=== PATIENT | female | born 1970 | race Two or more races ===

== ENCOUNTER → 2016-07-18 | Outpatient (CLI) | payer OTHER ==
[2015-12-03 16:46] VITALS: BP 142/71
[~2016-07-18] MED LIST: ALPR0.5T PO; AMIT25TA PO; CHOL100013 PO; ESOM40CA25 PO; ESTR26GE TD; LOSA50TA6 PO; VENL37.56 PO; ZOLP10TA PO
--- NOTE | 2016-07-19 08:45 | RAD ---
Left little finger, 3 views, 07/18/2016: History: Finger injury No fracture or dislocation is identified. There is minimal narrowing of the interphalangeal joints. IMPRESSION: No acute bony abnormality is detected.
== END | disposition home or self-care (01) ==
LOC: RAD 16:45
PROVIDERS: ATTEND Internal Medicine
DX: M79.645 Pain in left finger(s) (principal)
CPT/HCPCS: 73140

== ENCOUNTER 2016-08-01 22:28 | Emergency (ER) | payer OTHER ==
[~2016-08-01 22:28] MED LIST changes: -GADOBUTROL 7.5 MMOL/7.5 ML VIAL IV ONE; -HYDR-2666 PO; -SUCR1TAB29 PO
[2016-08-01 22:42] VITALS: BP 141/81
[2016-08-01] MEDS ORDERED: LIDO:MAALOX:DONNATAL 1:1:1 15 ML SINGLE DOSE SWSW ONE (23:00)
--- NOTE | 2016-08-01 23:13 | PHYS DOC ---
Past Medical History Past Medical History: Other Additional Past Medical Histor: hx of a blood clot Past Surgical History: Hysterectomy Alcohol Use: None Drug Use: None Adult General Chief Complaint Chief Complaint: HEARTBURN/GI DISTRESS HPI HPI Patient is a 45 year old female with history of GERD presents complaining of heartburn and chest pain has been present constantly all day today. She simply describes it as a "pain" radiating from her epigastrium up to her throat. She has had this before, but not as intense. The pain is worse whenever she swallows something. She denies bloody stools, dark stools, cough, shortness of breath, fever, palpitations, or dizziness. No leg swelling or calf tenderness. Nothing makes the pain better. She has no other acute complaints. No history of heart disease or diabetes. She is not a smoker. Review of Systems Review of Systems Constitutional: Denies fever or chills Eyes: Denies change in visual acuity, redness, or eye pain HENT: Denies nasal congestion or sore throat Respiratory: Denies cough or shortness of breath Cardiovascular: Reports chest pain. GI: Reports heartburn. Denies nausea, vomiting, bloody stools, or diarrhea. : Denies dysuria or hematuria Musculoskeletal: Denies back pain or joint pain Integument: Denies rash or skin lesions Neurologic: Denies headache, focal weakness or sensory changes Current Medications Current Medications Current Medications Medications (Trade) Dose Ordered Sig/David Start Time Stop Time Status Last Admin Dose Admin Multi-Ingredient Mouthwash/Gargle (Gi Cocktail Single Dose) 15 ml 1X ONCE 08/01/16 23:00 08/01/16 23:01 DC 08/01/16 23:05 15 ML Allergies Allergies Allergies Coded Allergies Type Severity Reaction Last Updated Verified codeine Allergy Unknown 08/07/14 Yes Physical Exam Physical Exam Constitutional: Well developed, well nourished, no acute distress, non-toxic appearance. HENT: Normocephalic, atraumatic, bilateral external ears normal, oropharynx moist, no oral exudates, nose normal. Eyes: PERRLA, EOMI, conjunctiva normal, no discharge. Neck: Normal range of motion, no tenderness, supple, no stridor. Cardiovascular:Heart rate regular rhythm, no murmur Lungs & Thorax: Bilateral breath sounds clear to auscultation Abdomen: Bowel sounds normal, soft, no tenderness, no masses, no pulsatile masses. Skin: Warm, dry, no erythema, no rash. Back: No tenderness, no CVA tenderness. Extremities: No tenderness, no cyanosis, ROM intact, no edema. Neurologic: Alert and oriented X 3, normal motor function, normal sensory function, no focal deficits noted. Psychologic: Affect normal, judgement normal, mood normal. Current Patient Data Vital Signs Vital Signs Date Time Temp Pulse Resp B/P Pulse Ox O2 Delivery O2 Flow Rate FiO2 08/01/16 22:42 98.0 86 18 141/81 99 Room Air 98.0 EKG EKG EKG: Sinus rhythm. Rate 79 bpm. Normal axis and intervals. No ST segment abnormalities. Normal EKG. Interpreted by me. Radiology/Procedures Radiology/Procedures [] Course & Med Decision Making Course & Med Decision Making Pertinent Labs and Imaging studies reviewed. (See chart for details) Patient has very atypical chest pain associated with GI reflux. She is low risk for ACS. EKG is nonischemic, exam is unremarkable, vitals are stable. She reports some improvement after GI cocktail. I wonder write her for Carafate and hydrocodone/APAP. I recommended against spicy, greasy, fatty foods and advised against ibuprofen and NSAIDs. I recommended primary care follow-up. Return precautions were discussed and all questions were answered prior to discharge. Rose Disclaimer Rose Disclaimer This electronic medical record was generated, in whole or in part, using a voice recognition dictation system. Departure Departure Impression: Primary Impression: Atypical chest pain Additional Impression: GERD (gastroesophageal reflux disease) Disposition: 01 HOME, SELF-CARE Condition: STABLE Referrals: MICHELINE TRIMBLE MD (PCP) Patient Instructions: Chest Pain (Nonspecific), [id number], Diet for Gastroesophageal Reflux Disease, Adult, [id number], Gastroesophageal Reflux Disease, Adult, [id number] Additional Instructions: Continue taking the Dexilant as prescribed. Take Carafate 4 times a day with meals as needed for chest pain/heartburn. Take the prescribed pain medication as directed, as needed. Avoid greasy, spicy, and fatty foods. Avoid alcohol and tobacco. You should also avoid NSAID medications such as ibuprofen and naproxen. If your pain becomes worse or you develop shortness of breath or lightheadedness return to the emergency department. Call your primary doctor tomorrow for follow-up. Scripts Sucralfate (Carafate)1 Gm Tablet1 Tab PO QID PRN INDIGESTION #120 TAB Ref 0 Prov:SHASHI WELLS MD 08/01/16 Hydrocodone Bit/Acetaminophen (Hydrocodone-Apap 5-325 )1 Each Tablet1-2 Tab PO Q4-6HRS PRN PAIN #20 TAB Ref 0 Prov:SHASHI WELLS MD 08/01/16 Problem Qualifiers Additional Impression: GERD (gastroesophageal reflux disease) Esophagitis presence: esophagitis presence not specified Qualified Code: K21.9 - Gastro-esophageal reflux disease without esophagitis SHASHI WELLS MD Aug 01, 2016 22:47
[2016-08-01] MEDS ORDERED: SUCR1TAB29 PO (23:24)
[2016-08-01] MEDS ORDERED: HYDR-2666 PO (23:24)
--- NOTE | 2016-08-02 07:11 | EKG ---
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
== END 2016-08-01 23:35 | disposition home or self-care (01) ==
LOC: ER 22:28
DX: K21.9 Gastro-esophageal reflux disease without esophagitis (principal); R07.89 Other chest pain; Z90.710 Acquired absence of both cervix and uterus; Z88.5 Allergy status to narcotic agent
CPT/HCPCS: 93005; 99283-25

== ENCOUNTER → 2016-08-01 | Outpatient (CLI) | payer OTHER ==
[2015-12-03 16:46] VITALS: BP 142/71
[~2016-08-01] MED LIST changes: +GADOBUTROL 7.5 MMOL/7.5 ML VIAL IV ONE; +HYDR-2666 PO; +SUCR1TAB29 PO
--- NOTE | 2016-08-01 16:20 | KCIC ---
PROCEDURE MRI brain without and with contrast. HISTORY Intractable migraine headache with aura, chronic daily headaches, left eye twitching TECHNIQUE Sagittal and axial T1, axial T2, axial FLAIR, axial diffusion, axial gradient echo T2, and post-contrast axial and coronal T1 weighted images were acquired of the brain. Contrast: 6 cc Gadavist COMPARISON None available at this time FINDINGS Ventricles, sulci, and cisterns are within normal limits in size and configuration. There is no intra-axial mass effect, midline shift, extra-axial fluid collection, or nodular parenchymal or leptomeningeal enhancement. There is no significant focal signal abnormality including hemosiderin deposition of the brain parenchyma. There is mild nonspecific increased CSF signal of the optic nerve sheaths. There is preservation of the major arterial intracranial flow voids at the skull base. Mastoid air cells are aerated. Paranasal sinuses are overall aerated. There is non pneumatization of the frontal sinus, also limited pneumatization of the sphenoid sinus. Cerebellar tonsils are normal in location. There is no abnormality of the pineal gland or pituitary gland. IMPRESSION 1. There is no significant intracranial abnormality. Electronically signed by: Sheng Goodrich MD (Aug 01, 2016 16:19:12)
== END | disposition home or self-care (01) ==
LOC: KCIC MRI 15:15
PROVIDERS: ATTEND Psychiatry & Neurology Neurology with Special Qualifications in Child Neurology
DX: G43.119 Migraine with aura, intractable, without status migrainosus (principal)
CPT/HCPCS: 70553; A9585

== ENCOUNTER → 2016-09-11 | Outpatient (CLI) | payer OTHER ==
[~2016-09-11] MED LIST changes: +DEXL60CA PO; +FLUT9.9S NS; +HYDR-2666 PO; +METO25TA2 PO; +NAPR220T70 PO; +OXYC1TAB7 PO; +SUCR1TAB29 PO; +VORT20TA PO
[2016-09-11 08:01] LABS: ALBUMIN 3.6 g/dL (3.4-5.0); ALK PHOS 95 U/L (46-116); ALT (SGPT) 32 U/L (14-59); AST (SGOT) 21 U/L (15-37); CHOLESTEROL 355 mg/dL (0-200); DIRECT BILIRUBIN 0.1 mg/dL (0.0-0.2); HDLC 36 mg/dL (40-60); TOTAL BILIRUBIN 0.4 mg/dL (0.2-1.0); TOTAL PROTEIN 7.8 g/dL (6.4-8.2); TRIGLYCERIDES 553 mg/dL (0-150)
[2016-09-11 08:02] LABS: CHOLESTEROL/HDL RATIO 9.9
== END | disposition home or self-care (01) ==
LOC: LAB 07:10
PROVIDERS: ATTEND Internal Medicine Cardiovascular Disease
DX: E78.1 Pure hyperglyceridemia (principal); R73.03 Prediabetes
CPT/HCPCS: 36415; 80061; 80076; 83036

== ENCOUNTER → 2016-09-11 | Outpatient (CLI) | payer OTHER ==
[~2016-09-11] VITALS: Ht 152.4 cm; Wt 62.6 kg
[~2016-09-11] MED LIST changes: +SINCALIDE 1.25 MCG in IV NORMAL SALINE 50ML 30 ML IV ONE
--- NOTE | 2016-09-11 08:47 | RAD ---
Exam performed: Complete abdominal ultrasound. History: Epigastric pain. Date of service: 09/11/16. Comparison: None available Technique: Real-time grayscale imaging of the complete abdomen is performed and images are obtained. Findings: The liver demonstrates diffuse steatosis and measures 16.1 cm in length. There is a somewhat lobulated, septated 7.9 x 6.5 cm cyst in the right hepatic lobe. Cholelithiasis. No evidence of gallbladder wall thickening or pericholecystic fluid seen. Bilateral kidneys are normal. Right kidney measures 10.2 x 4.4 x 4.5 cm and the left kidney measures 11.5 x 4.3 x 5.6 cm. No hydronephrosis or nephrolithiasis. Pancreas, spleen and visualized IVC and aorta appear grossly normal. Impression: Large lobulated somewhat septated cyst right hepatic lobe. Diffuse hepatic steatosis. Cholelithiasis without sonographic evidence of acute cholecystitis
--- NOTE | 2016-09-11 10:16 | RAD ---
Radionuclide hepatobiliary scan with gallbladder ejection fraction, 09/11/2016: History: Abdominal pain Following IV injection of 5.5 mCi of technetium 99m Choletec there was prompt uptake of the radionuclide from the blood stream by the liver. Activity is present in the bile ducts and gallbladder at 10 minutes. Imaging obtained out to one hour showed increasing gallbladder activity without extension into the small bowel. Following IV injection of 1.2 mcg of cholecystokinin there was extension of activity into the small bowel. The gallbladder ejection fraction was calculated at 89%. IMPRESSION: 1. No evidence of cystic duct or common bile duct obstruction. 2. The gallbladder ejection fraction is 89%.
== END | disposition home or self-care (01) ==
LOC: US 06:48
PROVIDERS: ATTEND Internal Medicine Gastroenterology
DX: R10.13 Epigastric pain (principal); K85.90 Acute pancreatitis without necrosis or infection, unspecified
CPT/HCPCS: 76700; 78226; 96374; 96375; A9537; J2805

== ENCOUNTER 2016-09-28 07:50 | Observation (INO) | payer OTHER ==
[2016-09-28] VITALS (9 sets, daily range): BP systolic 114–142; BP diastolic 62–88
[~2016-09-28] VITALS: Ht 152.4 cm; Wt 64.4 kg
[~2016-09-28 07:50] MED LIST changes: +CEFAZOLIN 2GM PREMIX 50 ML IV PRN; +INDOCYANINE GREEN 2.5 MG in TOTAL VOLUME SYRINGE 1 ML IVP ONE; +IV RINGERS,LACTATED 1000ML 1,000 ML IV SCH; +LIDOCAINE 1% 1 ML SYRINGE. ID PRN; +ONDANSETRON PF 4 MG/2 ML VIAL. IV PRN; -OXYC1TAB7 PO; +PROCHLORPERAZINE 10 MG/2 ML VIAL. IV PRN; -SINCALIDE 1.25 MCG in IV NORMAL SALINE 50ML 30 ML IV ONE
[2016-09-28] MEDS ORDERED: SURGICEL HEMOSTAT 4X8 EACH. ONE (08:16)
[2016-09-28] MEDS ORDERED: BUPIVACAINE-EPI 0.25%-1:200000 MPF 30 ML VIAL. ONE (08:16)
[2016-09-28] MEDS ORDERED: DEXAMETHASONE SOD PHOS 20 MG/5 ML VIAL. IV ONE (08:45)
[2016-09-28] MEDS ORDERED: DEXAMETHASONE SOD PHOS 4 MG/ML VIAL IV ONE (08:46)
[2016-09-28] MEDS: ACETAMINOPHEN INTRAVENOUS 100 ML IV PRN ×2 (08:49→15:23)
[2016-09-28] MEDS ORDERED: ROCURONIUM 50 MG/5 ML VIAL. ONE (08:55)
[2016-09-28] MEDS ORDERED: LIDOCAINE 2% 100 MG/5 ML DISP.SYRIN. ONE (08:55)
[2016-09-28] MEDS ORDERED: ONDANSETRON PF 4 MG/2 ML VIAL. ONE (08:55)
[2016-09-28] MEDS ORDERED: GLYCOPYRROLATE 1 MG/5 ML VIAL. ONE (08:55)
[2016-09-28] MEDS ORDERED: SEVOFLURANE 31 TO 60 MINUTES. IH ONE (08:55)
[2016-09-28] MEDS ORDERED: PROPOFOL 20 ML IV ONE ×2 (08:55→10:03)
[2016-09-28] MEDS ORDERED: NEOSTIGMINE METHYLSULFATE 5 MG/5 ML SYRINGE. ONE (08:56)
[2016-09-28] MEDS ORDERED: KETOROLAC 30 MG/ML SYRINGE FOR OR. INJ ONE (08:56)
[2016-09-28] MEDS ORDERED: SCOPOLAMINE 1.5MG PATCH. TD ONE (09:00)
[2016-09-28] MEDS ORDERED: PHENYLEPHRINE in 0.9% NACL PF 1 MG/10 ML DISP.SYRIN. IV ONE (09:35)
[2016-09-28] MEDS ORDERED: SEVOFLURANE 61 TO 120 MINUTES. IH ONE (10:00)
[2016-09-28] MEDS ORDERED: FENTANYL PF 100 MCG/2 ML VIAL. ONE (10:11)
--- NOTE | 2016-09-28 10:12 | PDOC ---
BRIEF OPERATIVE NOTE Date: Sep 28, 2016 Pre-Op Diagnosis Cholecystitis Post-Op Diagnosis Same Procedure Performed Robotic assisted single site L/S cholecystectomy Surgeon Randy Anesthesia Type: General Blood Loss 10ml Specimens Obtained Gallbladder Findings as above Complications None TAYA STAUFFER MD Sep 28, 2016 10:12
[2016-09-28] MEDS ORDERED: 0.9 % SODIUM CHLORIDE 10 ML DISP.SYRIN. IV PRN (10:15)
[2016-09-28] MEDS ORDERED: OXYCODONE/APAP 5/325 TABLET. PO PRN (10:15)
[2016-09-28] MEDS ORDERED: ONDANSETRON PF 4 MG/2 ML VIAL. IV PRN (10:15)
--- NOTE | 2016-09-28 10:40 | OP ---
DATE OF SURGERY: 09/28/2016 PREOPERATIVE DIAGNOSES: Cholecystitis, cholelithiasis. POSTOPERATIVE DIAGNOSES: Cholecystitis, cholelithiasis. PROCEDURE: Robotic-assisted laparoscopic single-site cholecystectomy. SURGEON: Rhett Stauffer MD. INDICATIONS: The patient is a 45-year-old female, who has had right upper quadrant abdominal pain. Ultrasound showing gallstones. Procedure of robotic-assisted laparoscopic single-site cholecystectomy was explained to the patient in detail. Risks and benefits were also discussed including bleeding, infection, injury to intra-abdominal contents, possibly sustaining further open operations. Alternatives of this procedure were also discussed with the patient who seemed to understand and gave verbal and written consent to have the procedure performed. DESCRIPTION OF PROCEDURE: The patient was taken to the operating room and placed in a supine position. General anesthesia was initiated. Once the patient was asleep and intubated, her abdomen was prepped and draped in the usual sterile fashion using ChloraPrep. An area around her umbilicus was injected with 0.25% Marcaine with epinephrine. Incision was made with an 11 blade scalpel to the umbilicus, was carried down through subcutaneous tissues down to the fascia. Fascia was opened with Metzenbaum scissors as well as the peritoneum. Two ____ were placed within the abdomen and the fascia was further opened with electrocautery. This allowed for placement of the silicone single port. Thus a pneumoperitoneum was achieved. Camera port was placed and the camera was placed within the abdomen. Abdomen was inspected. No other abnormalities were noted. At this point, the da Domenica robot was brought in and docked over the right shoulder to the camera port. At this point, two curved ports were then placed under direct visualization as well as an accessory port. The dome of the gallbladder was grasped through the accessory port and retracted cephalad. At this point, the surgeon went to the surgical console and using a [place] grasper and a hook cautery, the triangle of Calot was taken down off its adherent tissues exposing the cystic duct and cystic artery. Both were clipped with Hem-o-noemy clips and transected. The gallbladder was taken off the liver with hook electrocautery. Once it was completely detached, surgeon returned to the operative field. The da Domenica robot was undocked and removed from the patient. The GelPort was then removed with the gallbladder and all other ports. The fascial defect was then closed with a running 0 looped PDS and the skin was reapproximated with 4-0 subcuticular Monocryl. Mastisol, Steri-Strips, 4 x 4s, and Medipore tape were applied as dressings. The patient was awakened, extubated in the operating room, taken to recovery in stable condition. All sponge and instrument counts were listed as correct. Estimated blood loss was 10 mL. RHETT STAUFFER MD DR: FOX/isreal JOB#: [id number] / [id number] MICHELINE Mendoza MD
[2016-09-28] MEDS: FENTANYL PF 100 MCG/2 ML VIAL. IV PRN ×5 (10:52→11:27)
[2016-09-28] MEDS: KETOROLAC 15 MG/ML VIAL. IV SCH ×3 (12:00→23:52)
[2016-09-28] MEDS: MORPHINE SULFATE 2 MG/ML DISP.SYRIN. IV PRN ×2 (15:11→19:16)
[2016-09-28] MEDS: IV DEXTROSE 5%-LACT RINGERS 1,000 ML IV SCH (15:17)
[2016-09-28] MEDS ORDERED: SUCRALFATE 1 GM TABLET. PO PRN (17:45)
[2016-09-28] MEDS ORDERED: PROCHLORPERAZINE 10 MG/2 ML VIAL. IV PRN (18:30)
[2016-09-28] MEDS: OXYCODONE/APAP 5/325 TABLET. PO PRN (19:19)
[2016-09-28] MEDS ORDERED: AMITRIPTYLINE HCL 25 MG TABLET PO SCH (21:00)
[2016-09-29 03:00] VITALS: BP 102/65
[2016-09-29] MEDS: OXYCODONE/APAP 5/325 TABLET. PO PRN (04:25)
[2016-09-29] MEDS: IV DEXTROSE 5%-LACT RINGERS 1,000 ML IV SCH ×2 (04:25→12:52)
[2016-09-29 05:29] LABS: BASO % 0 % (0-3); EOS % 0 % (0-3); HEMATOCRIT 38.4 % (36.0-47.0); HEMOGLOBIN 12.6 g/dL (12.0-15.5); LYMPH # 1.8 x10^3/uL (1.0-4.8); LYMPH % 13 % (24-48); MEAN CORPUSCULAR HEMOGLOBIN 29 pg (25-35); MEAN CORPUSCULAR HGB CONC 33 g/dL (31-37); MEAN CORPUSCULAR VOLUME 90 fL (79-100); MONO % 6 % (0-9); NEUT % 80 % (31-73); PLATELET COUNT 295 x10^3/uL (140-400); RED BLOOD COUNT 4.27 x10^6/uL (3.50-5.40); RED CELL DISTRIBUTION WIDTH 13.8 % (11.5-14.5); WHITE BLOOD COUNT 13.4 x10^3/uL (4.0-11.0)
[2016-09-29] MEDS: KETOROLAC 15 MG/ML VIAL. IV SCH ×2 (05:58→12:00)
[2016-09-29 07:00] VITALS: BP 99/57
[2016-09-29] MEDS ORDERED: PANTOPRAZOLE 40 MG TABLET. PO SCH (07:30)
[2016-09-29] MEDS ORDERED: METOPROLOL SUCC 24HR ER 25 MG TAB.ER.24H. PO SCH (09:00)
[2016-09-29] MEDS ORDERED: NON FORMULARY ITEM (Vortioxetine Hydrobromide (Trintellix) 20 MG) PO SCH (09:00)
--- NOTE | 2016-09-29 10:10 | PDOC ---
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 09/29/16 1010: SURGICAL PROGRESS NOTE Subjective mild nausea with breakfast no emesis urinating ok pain epigastric incision Vital Signs Vital Signs Date Time Temp Pulse Resp B/P Pulse Ox O2 Delivery O2 Flow Rate FiO2 09/29/16 08:52 105 99/50 09/29/16 08:00 Room Air 10.0 09/29/16 07:00 98.4 20 97 98.4 I&O Intake and Output 09/29/16 07:00 Intake Total 1550 ml Output Total 5 ml Balance 1545 ml Intake Oral 400 ml IV Total 1150 ml Output Estimated Blood Loss 5 ml # Voids 8 General: Alert, Oriented X3, Cooperative, No acute distress Abdomen: Soft, Other (epigastric TTP) Labs Laboratory Tests Test 09/29/16 04:40 White Blood Count 13.4x10^3/uL (4.0-11.0) Red Blood Count 4.27x10^6/uL (3.50-5.40) Hemoglobin 12.6g/dL (12.0-15.5) Hematocrit 38.4% (36.0-47.0) Mean Corpuscular Volume 90fL (79-100) Mean Corpuscular Hemoglobin 29pg (25-35) Mean Corpuscular Hemoglobin Concent 33g/dL (31-37) Red Cell Distribution Width 13.8% (11.5-14.5) Platelet Count 295x10^3/uL (140-400) Neutrophils (%) (Auto) 80% (31-73) Lymphocytes (%) (Auto) 13% (24-48) Monocytes (%) (Auto) 6% (0-9) Eosinophils (%) (Auto) 0% (0-3) Basophils (%) (Auto) 0% (0-3) Neutrophils # (Auto) 10.8x10^3uL (1.8-7.7) Lymphocytes # (Auto) 1.8x10^3/uL (1.0-4.8) Monocytes # (Auto) 0.9x10^3/uL (0.0-1.1) Eosinophils # (Auto) 0.0x10^3/uL (0.0-0.7) Basophils # (Auto) 0.0x10^3/uL (0.0-0.2) Laboratory Tests Test 09/29/16 04:40 White Blood Count 13.4x10^3/uL (4.0-11.0) Red Blood Count 4.27x10^6/uL (3.50-5.40) Hemoglobin 12.6g/dL (12.0-15.5) Hematocrit 38.4% (36.0-47.0) Mean Corpuscular Volume 90fL (79-100) Mean Corpuscular Hemoglobin 29pg (25-35) Mean Corpuscular Hemoglobin Concent 33g/dL (31-37) Red Cell Distribution Width 13.8% (11.5-14.5) Platelet Count 295x10^3/uL (140-400) Neutrophils (%) (Auto) 80% (31-73) Lymphocytes (%) (Auto) 13% (24-48) Monocytes (%) (Auto) 6% (0-9) Eosinophils (%) (Auto) 0% (0-3) Basophils (%) (Auto) 0% (0-3) Neutrophils # (Auto) 10.8x10^3uL (1.8-7.7) Lymphocytes # (Auto) 1.8x10^3/uL (1.0-4.8) Monocytes # (Auto) 0.9x10^3/uL (0.0-1.1) Eosinophils # (Auto) 0.0x10^3/uL (0.0-0.7) Basophils # (Auto) 0.0x10^3/uL (0.0-0.2) Problem List Problems Medical Problems: (1) Cholecystitis Status: Acute Assessment/Plan s/p lap rob plan DC home after lunch if no n/v Problems: TAYA STAUFFER MD 09/29/16 1354: SURGICAL PROGRESS NOTE Assessment/Plan Agree with Macrina's assessment and plan. Problems: 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 Sep 29, 2016 10:10 TAYA STAUFFER MD Sep 29, 2016 13:54
[2016-09-29] MEDS ORDERED: OXYC1TAB7 PO (10:13)
[2016-09-29 11:00] VITALS: BP 105/63
--- NOTE | 2016-09-29 14:37 | PATHOLOGY ---
PATHOLOGY REPORT * * * * * * * * FINAL DIAGNOSIS: Gallbladder, robotic laparoscopic cholecystectomy: - Cholelithiasis. - Cholesterolosis, focal. - Chronic cholecystitis. COMMENT: There is no evidence of malignancy. (JPM:; d/t: 09/29/16) REPORT ELECTRONICALLY SIGNED BY: Tapan Boone M.D. DATE/TIME: 09/29/2016 14:37 * * * * * * * * GROSS PATHOLOGY: Received in formalin labeled "Minerva Landry, gallbladder and its contents," is a 8.8 x 3.0 x 2.6 cm, intact gallbladder with pink-holloway serosal surfaces. Opening the gallbladder reveals a velvety, light ferrara mucosa and an average wall thickness of 0.1 cm. A single green multinodular calculus is present and no masses are noted grossly. Square Dance Caller sections from the body and fundus are submitted along with the proximal margin in cassette A1. (CAA; 09/28/2016) INITIAL CPT CODE(S): A; 83857 Professional services performed [place] [facility] [address] Technical services performed by [facility] at [address] [place] [address]. SPECIMEN(S) RECEIVED: A.Gallbladder and its contents CLINICAL HISTORY: Cholelithiasis PATIENT: MINERVA LANDRY /AGE: 4 1970 (Age: 45) PATIENT #: [id number] ALT CASE #: SPECIMEN COLLECTION DATE: 09/28/2016 SPECIMEN RECEIVED DATE: 09/28/2016 [facility] - [address] [place] [address] - PHONE: [phone] * * * END OF REPORT * * *
--- NOTE | 2016-10-02 10:28 | PDOC3 ---
Discharge Summary* Date of Admission: Sep 28, 2016 Date of Discharge: Sep 29, 2016 Admitting Diagnosis Problems Medical Problems: (1) Cholecystitis Status: Acute Final Diagnosis Problems Medical Problems: (1) Cholecystitis Status: Acute CONSULTS none Procedures Robotic assisted single site L/S cholecystectomy Brief Hospital Course Ms. Landry is a 45 old female who underwent a cholecystectomy. Postoperatively tolerating diet, ambulating, and pain managed on oral medication. Ready for discharge home Disposition/Orders: D/C to Home CONDITION AT DISCHARGE: Stable Diet: Regular (low fat) Scheduled Amitriptyline Hcl (Amitriptyline Hcl) 25 MG PO HS (Reported) Dexlansoprazole (Dexilant) 1 CAP PO DAILY (Reported) Fluticasone Propionate (Flonase Allergy Relief) 2 SPRAYS NS DAILY (Reported) Metoprolol Succinate (Toprol Xl) 25 MG PO DAILY (Reported) Naproxen Sodium (Aleve) 220 MG PO BID (Reported) Vortioxetine Hydrobromide (Trintellix) 20 MG PO DAILY (Reported) Scheduled PRN Alprazolam (Xanax) 0.5 MG PO PRN Q6HRS PRN PRN ANXIETY / AGITATION (Reported) Oxycodone Hcl/Acetaminophen (Oxycodone-Acetaminophen 5-325) 2 TAB PO PRN Q4HRS PRN PRN MODERATE PAIN, SEVERE PAIN Sucralfate (Carafate) 1 TAB PO QID PRN PRN INDIGESTION Discontinued Medications Cholecalciferol (Vitamin D3) (Vitamin D) 1 CAP PO DAILY (Reported) Esomeprazole Strontium (Esomeprazole Capsule) 40 MG PO DAILYAC (Reported) Estradiol (Elestrin) 26 GM TD (Reported) Losartan Potassium (Losartan Potassium) 50 MG PO DAILY (Reported) Venlafaxine Hcl (Venlafaxine Hcl) 37.5 MG PO DAILY (Reported) Zolpidem Tartrate (Ambien) 10 MG PO HS PRN PRN INSOMNIA (Reported) FOLLOW UP APPOINTMENT: 2 weeks Time Spent Total time spent with patient [] minutes for coordination of care, counseling, and education. PABLO EDWARDS GRAINER MACHINE Oct 02, 2016 10:28
== END 2016-09-29 14:30 | disposition home or self-care (01) ==
LOC: SURG 07:50 → 4 NORTH 10:50
PROVIDERS: ADMIT Surgery; ATTEND Surgery
DX: K80.10 Calculus of gallbladder with chronic cholecystitis without obstruction (principal)
CPT/HCPCS: 36415; 47562; 85027; 96374; 96375; 96376; G0378; G0379; J0131; J0690; J0780; J1100; J1885; J2270; J2370; J2405; J2704; J2710; J3010; J3490; J7120; S2900; 88304

== ENCOUNTER → 2016-11-01 | Outpatient (CLI) | payer OTHER ==
[~2016-11-01] MED LIST changes: -CEFAZOLIN 2GM PREMIX 50 ML IV PRN; -INDOCYANINE GREEN 2.5 MG in TOTAL VOLUME SYRINGE 1 ML IVP ONE; -IV RINGERS,LACTATED 1000ML 1,000 ML IV SCH; -LIDOCAINE 1% 1 ML SYRINGE. ID PRN; -ONDANSETRON PF 4 MG/2 ML VIAL. IV PRN; +OXYC1TAB7 PO; -PROCHLORPERAZINE 10 MG/2 ML VIAL. IV PRN
[2016-11-01 09:07] LABS: ALBUMIN 3.7 g/dL (3.4-5.0); DIRECT BILIRUBIN 0.1 mg/dL (0.0-0.2); TOTAL BILIRUBIN 0.4 mg/dL (0.2-1.0); TOTAL PROTEIN 8.1 g/dL (6.4-8.2)
[2016-11-01 09:09] LABS: CHOLESTEROL/HDL RATIO 11.3
== END | disposition home or self-care (01) ==
LOC: LAB 07:36
PROVIDERS: ATTEND Internal Medicine Cardiovascular Disease
DX: E78.1 Pure hyperglyceridemia (principal); R73.03 Prediabetes
CPT/HCPCS: 36415; 80061; 80076; 83036

== ENCOUNTER → 2016-11-28 | Outpatient (CLI) | payer OTHER ==
[2016-11-29 12:21] LABS: RHEUMATOID FACTOR <10.0 IU/mL (0.0-13.9)
[2016-11-30 22:15] LABS: CYCLIC CITRULLIN PEP AB 18 units (0-19)
== END | disposition home or self-care (01) ==
LOC: LAB 16:59
PROVIDERS: ATTEND Internal Medicine Rheumatology
DX: M25.50 Pain in unspecified joint (principal)
CPT/HCPCS: 36415; 85651; 86140; 86200; 86431

== ENCOUNTER → 2017-01-05 | Outpatient (CLI) | payer OTHER ==
[~2017-01-05] MED LIST changes: -DEXL60CA PO; +DEXL60CA2 PO; -HYDR-2666 PO; +HYDR-2758 PO; -SUCR1TAB29 PO; +SUCR1TAB35 PO
[2017-01-05 08:37] LABS: ALBUMIN 3.6 g/dL (3.4-5.0); DIRECT BILIRUBIN 0.1 mg/dL (0.0-0.2); TOTAL BILIRUBIN 0.3 mg/dL (0.2-1.0); TOTAL PROTEIN 7.8 g/dL (6.4-8.2)
== END | disposition home or self-care (01) ==
LOC: LAB 07:50
PROVIDERS: ATTEND Internal Medicine Cardiovascular Disease
DX: E78.5 Hyperlipidemia, unspecified (principal)
CPT/HCPCS: 36415; 80061; 80076

== ENCOUNTER → 2017-04-28 | Outpatient (CLI) | payer OTHER ==
--- NOTE | 2017-04-30 10:04 | RAD ---
DATE: April 28, 2017. EXAM: DIGITAL SCREEN BILAT W/CAD HISTORY: Routine screening. COMPARISON: March 17, 2016. May 03, 2012. TECHNIQUE: CC and MLO views along with implant displaced views of each breast were obtained. This study was interpreted with the benefit of Computerized Aided Detection (CAD). FINDINGS: The breast parenchyma is heterogeneously dense, category C, which may obscure small masses. Implants are noted. There are a few benign-appearing calcifications. There are no suspicious calcifications. There is no worrisome mass or area of architectural distortion. IMPRESSION: Stable mammogram with benign findings. BI-RADS CATEGORY: 2 BENIGN FINDING RECOMMENDED FOLLOW-UP: 12M 12 MONTH FOLLOW-UP PQRS compliance statement: Patient information was entered into a reminder system with a target due date for the next mammogram. Mammography is a sensitive method for finding small breast cancers, but it does not detect them all and is not a substitute for careful clinical examination. A negative mammogram does not negate a clinically suspicious finding and should not result in delay in biopsying a clinically suspicious abnormality. "Our facility is accredited by the [employer] Mammography Program."
== END | disposition home or self-care (01) ==
LOC: MAMMO 08:43
PROVIDERS: ATTEND Internal Medicine
DX: Z12.31 Encounter for screening mammogram for malignant neoplasm of breast (principal)
CPT/HCPCS: G0202; 77067

== ENCOUNTER → 2017-05-07 | Outpatient (CLI) | payer OTHER ==
[2017-05-07 08:53] LABS: ALBUMIN 3.7 g/dL (3.4-5.0); ALK PHOS 87 U/L (46-116); ALT (SGPT) 36 U/L (14-59); ANION GAP 10 (6-14); AST (SGOT) 21 U/L (15-37); BLOOD UREA NITROGEN 15 mg/dL (7-20); CALCIUM 9.2 mg/dL (8.5-10.1); CARBON DIOXIDE 25 mmol/L (21-32); CHLORIDE 105 mmol/L (98-107); CHOLESTEROL 223 mg/dL (0-200); CREATININE 0.8 mg/dL (0.6-1.0); DIRECT BILIRUBIN < 0.1 mg/dL (0.0-0.2); GFR 76.6; GLUCOSE 103 mg/dL (70-99); HDLC 38 mg/dL (40-60); NON-HDL CHOLESTEROL 185 mg/dL (0-129); POTASSIUM 4.3 mmol/L (3.5-5.1); SODIUM 140 mmol/L (136-145); TOTAL BILIRUBIN 0.3 mg/dL (0.2-1.0); TOTAL PROTEIN 7.4 g/dL (6.4-8.2); TRIGLYCERIDES 359 mg/dL (0-150)
[2017-05-07 08:54] LABS: CHOLESTEROL/HDL RATIO 5.9
== END | disposition home or self-care (01) ==
LOC: LAB 07:32
PROVIDERS: ATTEND Internal Medicine Cardiovascular Disease
DX: E78.5 Hyperlipidemia, unspecified (principal)
CPT/HCPCS: 36415; 80048; 80061; 80076

== ENCOUNTER → 2017-05-14 | Outpatient (CLI) | payer OTHER ==
--- NOTE | 2017-05-15 08:05 | RAD ---
Indication chronic shoulder pain. No history of injury. Internally and externally rotated views of the right shoulder were obtained as well as a Y view. No bony abnormality is seen
== END | disposition home or self-care (01) ==
LOC: RAD 16:45
PROVIDERS: ATTEND Family Medicine
DX: G89.29 Other chronic pain (principal); M25.511 Pain in right shoulder
CPT/HCPCS: 73030

== ENCOUNTER → 2017-08-10 | Outpatient (CLI) | payer OTHER ==
[2017-08-10 08:20] LABS: ALBUMIN 3.7 g/dL (3.4-5.0); ALK PHOS 91 U/L (46-116); ALT (SGPT) 32 U/L (14-59); AST (SGOT) 20 U/L (15-37); CHOLESTEROL 97 mg/dL (0-200); DIRECT BILIRUBIN 0.1 mg/dL (0.0-0.2); HDLC 40 mg/dL (40-60); LDLC 16 mg/dL (0-100); NON-HDL CHOLESTEROL 57 mg/dL (0-129); TOTAL BILIRUBIN 0.2 mg/dL (0.2-1.0); TOTAL PROTEIN 7.8 g/dL (6.4-8.2); TRIGLYCERIDES 204 mg/dL (0-150); VLDLC 41 mg/dL (0-40)
[2017-08-10 08:23] LABS: CHOLESTEROL/HDL RATIO 2.4
== END | disposition home or self-care (01) ==
LOC: LAB 07:44
DX: Z51.81 Encounter for therapeutic drug level monitoring (principal); E78.1 Pure hyperglyceridemia; E78.5 Hyperlipidemia, unspecified
CPT/HCPCS: 36415; 80061; 80076

== ENCOUNTER → 2017-08-10 | Outpatient (CLI) | payer OTHER | END | disposition home or self-care (01) | LOC: MRI 12:49 | DX: M75.101 Unspecified rotator cuff tear or rupture of right shoulder, not specified as traumatic (principal); M75.02 Adhesive capsulitis of left shoulder | CPT/HCPCS: 73221 ==

== ENCOUNTER → 2017-08-17 | Outpatient (CLI) | payer OTHER | END | disposition home or self-care (01) | LOC: RAD 15:36 | DX: M50.323 Other cervical disc degeneration at C6-C7 level (principal); R29.898 Other symptoms and signs involving the musculoskeletal system | CPT/HCPCS: 72040 ==

== ENCOUNTER → 2017-09-25 | Outpatient (CLI) | payer OTHER ==
[2017-09-28 12:19] LABS: H PYLORI IGA 1.8 units (0.0-8.9); H PYLORI IGG 0.39 (0.00-0.79); H PYLORI IGM 7.5 units (0.0-8.9)
== END | disposition home or self-care (01) ==
LOC: LAB 16:53
DX: R11.0 Nausea (principal)
CPT/HCPCS: 36415; 86677

== ENCOUNTER → 2017-09-28 | Outpatient (CLI) | payer OTHER | END | disposition home or self-care (01) | LOC: MRI 15:35 | DX: M50.13 Cervical disc disorder with radiculopathy, cervicothoracic region (principal); M47.892 Other spondylosis, cervical region; M48.02 Spinal stenosis, cervical region | CPT/HCPCS: 72141 ==

== ENCOUNTER → 2017-11-08 | Outpatient (CLI) | payer OTHER | END | disposition home or self-care (01) | LOC: ECHO 10:54 | DX: E78.00 Pure hypercholesterolemia, unspecified (principal); E11.9 Type 2 diabetes mellitus without complications; E78.5 Hyperlipidemia, unspecified | CPT/HCPCS: 93306 ==

== ENCOUNTER → 2018-05-09 | Outpatient (CLI) | payer OTHER ==
[2018-01-11 20:20] VITALS: BP 118/86
[~2018-05-09] MED LIST changes: -LOSA50TA6 PO; +LOSA50TA7 PO; +ONDA4TAB7 PO
[2018-05-09 08:05] LABS: BASO # 0.1 x10^3/uL (0.0-0.2); BASO % 1 % (0-3); EOS # 0.1 x10^3/uL (0.0-0.7); EOS % 2 % (0-3); HEMATOCRIT 38.4 % (36.0-47.0); HEMOGLOBIN 13.7 g/dL (12.0-15.5); LYMPH # 2.9 x10^3/uL (1.0-4.8); LYMPH % 44 % (24-48); MEAN CORPUSCULAR HEMOGLOBIN 31 pg (25-35); MEAN CORPUSCULAR HGB CONC 36 g/dL (31-37); MEAN CORPUSCULAR VOLUME 86 fL (79-100); MONO # 0.6 x10^3/uL (0.0-1.1); MONO % 9 % (0-9); NEUT % 46 % (31-73); PLATELET COUNT 269 x10^3/uL (140-400); RED BLOOD COUNT 4.48 x10^6/uL (3.50-5.40); RED CELL DISTRIBUTION WIDTH 14.1 % (11.5-14.5); WHITE BLOOD COUNT 6.6 x10^3/uL (4.0-11.0)
[2018-05-09 08:24] LABS: ALBUMIN 3.3 g/dL (3.4-5.0); ALBUMIN/GLOBULIN RATIO 0.8 (1.0-1.7); ALK PHOS 102 U/L (46-116); ALT (SGPT) 59 U/L (14-59); ANION GAP 15 (6-14); AST (SGOT) 38 U/L (15-37); BLOOD UREA NITROGEN 9 mg/dL (7-20); BUN/CREATININE RATIO 11 (6-20); CALCIUM 8.5 mg/dL (8.5-10.1); CARBON DIOXIDE 22 mmol/L (21-32); CHLORIDE 106 mmol/L (98-107); CHOLESTEROL 335 mg/dL (0-200); CREATININE 0.8 mg/dL (0.6-1.0); GFR 76.2; GLUCOSE 118 mg/dL (70-99); HDLC 32 mg/dL (40-60); POTASSIUM 3.6 mmol/L (3.5-5.1); SODIUM 143 mmol/L (136-145); TOTAL BILIRUBIN 0.3 mg/dL (0.2-1.0)
[2018-05-09 08:46] LABS: TRIGLYCERIDES 722 mg/dL (0-150)
[2018-05-09 08:49] LABS: CHOLESTEROL/HDL RATIO 10.5
[2018-05-09 08:50] LABS: TOTAL PROTEIN 7.4 g/dL (6.4-8.2)
[2018-05-09 09:11] LABS: BILIRUBIN,URINE NEGATIVE (NEG); CLARITY,URINE CLEAR; COLOR,URINE YELLOW; NITRITE,URINE NEGATIVE (NEG); PH,URINE 5.5; PROTEIN,URINE NEGATIVE (NEG-TRACE); UROBILINOGEN,URINE 0.2 mg/dL (0.2 mg/dL)
[2018-05-09 09:21] LABS: RBC,URINE 0 /HPF (0-2); SQUAMOUS EPITHELIAL CELL,UR MANY /LPF
[2018-05-09 09:22] LABS: BACTERIA,URINE MODERATE /HPF (0-FEW)
[2018-05-11 23:07] LABS: HEMOGLOBIN A1C 5.6 % (4.8-5.6)
== END | disposition home or self-care (01) ==
LOC: LAB 07:46
PROVIDERS: ATTEND Family Medicine
DX: G43.119 Migraine with aura, intractable, without status migrainosus (principal); E78.1 Pure hyperglyceridemia; I10 Essential (primary) hypertension; R53.83 Other fatigue; E11.9 Type 2 diabetes mellitus without complications
CPT/HCPCS: 36415; 80053; 80061; 81001; 82607; 82746; 83036; 84443; 85025; 85651; 87086

== ENCOUNTER → 2018-05-25 | Outpatient (CLI) | payer OTHER ==
[2018-01-11 20:20] VITALS: BP 118/86
--- NOTE | 2018-05-27 15:19 | RAD ---
DATE: 05/27/2018 EXAM: MAMMO FRANCISCA SCREENING BILATERAL HISTORY: Routine screening COMPARISON: 04/28/2017 screen mammographic exam This study was interpreted with the benefit of Computerized Aided Detection (CAD). Breast Density: SCATTERED The breast parenchyma shows scattered fibroglandular densities. Breast parenchyma level B. FINDINGS: Bilateral screening mammographic exam was performed. Implant displacement views in each projection bilaterally were also obtained. Parenchymal distribution is stable. No masses or distortion. Implant contours are normal. No suspicious calcifications clusters. IMPRESSION: Normal BI-RADS CATEGORY: 2 BENIGN FINDING(S) RECOMMENDED FOLLOW-UP: 12M 12 MONTH FOLLOW-UP PQRS compliance statement: Patient information was entered into a reminder system with a target due date in one year for the next mammogram. Mammography is a sensitive method for finding small breast cancers, but it does not detect them all and is not a substitute for careful clinical examination. A negative mammogram does not negate a clinically suspicious finding and should not result in delay in biopsying a clinically suspicious abnormality. "Our facility is accredited by the [employer] Mammography Program."
== END | disposition home or self-care (01) ==
LOC: MAMMO 09:31
PROVIDERS: ATTEND Family Medicine
DX: Z12.31 Encounter for screening mammogram for malignant neoplasm of breast (principal)
CPT/HCPCS: 77063; 77067

== ENCOUNTER → 2018-08-23 | Outpatient (CLI) | payer OTHER ==
[2018-01-11 20:20] VITALS: BP 118/86
[~2018-08-23] MED LIST changes: +CYCL10TA2 PO; +ESCITALOPRAM OX10 MG PO; +ESTR1TAB17 PO; +GABA-689 PO; -HYDR-2758 PO; +HYDR-2761 PO; +LOSA-73 PO; -LOSA50TA7 PO; +MECL12.52 PO; +METH-37 PO; +NAPR-683 PO; +NAPR500T8 PO; +OMEP20TA8 PO; +OXYC1TAB22 PO
[2018-08-23 09:07] LABS: ALBUMIN 3.5 g/dL (3.4-5.0); CALCIUM 8.6 mg/dL (8.5-10.1); CREATININE 0.8 mg/dL (0.6-1.0); DIRECT BILIRUBIN 0.1 mg/dL (0.0-0.2); GFR 76.2; POTASSIUM 3.9 mmol/L (3.5-5.1); TOTAL BILIRUBIN 0.3 mg/dL (0.2-1.0); TOTAL PROTEIN 7.8 g/dL (6.4-8.2)
[2018-08-23 09:09] LABS: CHOLESTEROL/HDL RATIO 7.4
--- NOTE | 2018-08-23 12:12 | RAD ---
MR#: [id number] Date of Study: 08/23/2018 Ordering Physician: ARGELIA RODRIGUEZ, Referring Physician: MORIS LIVE Tech: ANGELINE Potts APPROVED REPORT Test Type: Exercise Stress Nurse/Tech: Adelaide Lubin R.N. Test Indications: Family hx, dizziness Cardiac History: htn, tachy Medications: See Electronic Medical Record Medical History: See Electronic Medical Record Resting ECG: SR Resting Heart Rate: 78 bpm Resting Blood Pressure: 122/75mmHg Pretest Chest Pain: No chest pain Nurse/Tech Notes S1S2, lungs CTA Consent: The procedure was explained to the patient in lay terms. Informed consent was witnessed. Herman eout was entered into [employer]. History and Stress Test performed by ANGELINE Potts Stress Symptoms severe SOB, dizziness, fatigue under 3 minutes on treadmill- almost couldn't finish the 4 minutes. POST EXERCISE Reason for Termination: Reached target heart rate Target HR: Yes Max HR: 159 bpm 109% of Maximum Predicted HR: 145 bpm Exercise duration: 4:11 min:sec, 1 Stage Exercise capacity: 4.6METs Max Blood Pressure: 146/82mmHg Blood Pressure response to exercise: Normal blood pressure response during stress. Heart Rate response to exercise: wnl Chest Pain: No. Arrhythmia: No. ST Change: No. INTERPRETATION Stress EKG Conclusion: Baseline EKG showed sinus rhythm. No ischemic changes at peak stress. No arr hythmias. Imaging Protocol IMAGE PROTOCOL: Rest Tc-99m/stress Tc-99m 1 day Rest: Stress: Viability: Radiopharm.Tc99m UtwqxsuikSo09o Sestamibi Dose10.1mCi 33mCi Duration 15min. 10min. Img Date 08/23/2018 08/23/2018 Inj-Img Spkg89qcg. 60min. Post-Injection Exercise: 1 minute Rest Admin Site:IV - Right AntecubitalAdministrator:ANGELINE Potts Stress Admin Site: IV - Right AntecubitalAdministrator: Darwin Castaneda, RT (R)(N) STRESS DATA End Diast. Vol.60.0mlAv. Heart Rate85.0bpm End Syst. Vol.13.0mlCO Index BSA0.0L/min Myocardial Sjxg764.0gEject. Lirgphnx24.0% Stress Rates Pk. Fill Rate4.96EDV/secLVtime Pk. Fill 183.79msec Pk. Empty Rate4.92ESV/secLVtime Pk. Whhai954.18msec 1/3 Pk. Fill1.21EDV/sec Stress Scores Regional WT1.00Summed WT4.00 Regional WM0.00Summed WM0.00 Study quality was good. Left Ventricular size was Normal at Rest and Stress. Lung uptake was . Left Ventricular ejection fraction is 78%. The rest and stress images show normal perfusion, normal contraction and thickening. LV Perf. Quant 17 Seg. SSS0.00 17 Seg. SRS3.00 17 Seg. SDS0.00 Stress Defect Extent (% LAD)0.00Rest Defect Extent (% LAD)0.00Rev. Defect Extent (% LAD)0.00 Stress Defect Extent (% LCX) 0.00Rest Defect Extent (% LCX)25.00Rev. Defect Extent (% LCX)0.00 Stress Defect Extent (% RCA)0.00Rest Defect Extent (% RCA)0.00Rev. Defect Extent (% RCA)0.00 Stress Defect Extent (% MARIO ALBERTO)0.00Rest Defect Extent (% MARIO ALBERTO)7.60Rev. Defect Extent (% MARIO ALBERTO)0.00 Conclusion 1. Treadmill exercise cardioisotope stress test did not show any evidence of ischemia or infarct. 2. Normal left ventricular systolic function with ejection fraction calculated at 78%. 3. Low risk for cardiac events. Signed by : Blair Wang, Electronically Approved : 08/23/2018 12:10:07
== END | disposition home or self-care (01) ==
LOC: NM 08:08
PROVIDERS: ATTEND Internal Medicine Cardiovascular Disease
DX: E78.5 Hyperlipidemia, unspecified (principal); R07.9 Chest pain, unspecified; I10 Essential (primary) hypertension; Z84.89 Family history of other specified conditions
CPT/HCPCS: 36415; 78452; 80048; 80061; 80076; 93017; 96374; 96376; A9500

== ENCOUNTER → 2018-10-31 | Outpatient (CLI) | payer OTHER ==
[2018-01-11 20:20] VITALS: BP 118/86
[~2018-10-31] MED LIST changes: -ESCITALOPRAM OX10 MG PO; -ESTR1TAB17 PO; -GABA-689 PO; -MECL12.52 PO; -METH-37 PO; -NAPR500T8 PO; -OMEP20TA8 PO; -OXYC1TAB22 PO
[2018-10-31 17:07] LABS: BARBITURATES NEG (NEG); BASO % 1 % (0-3); BENZODIAZEPINES NEG (NEG); CANNABINOIDS NEG (NEG); COCAINE NEG (NEG); EOS # 0.1 x10^3/uL (0.0-0.7); EOS % 1 % (0-3); HEMATOCRIT 39.1 % (36.0-47.0); HEMOGLOBIN 13.3 g/dL (12.0-15.5); LYMPH # 3.4 x10^3/uL (1.0-4.8); LYMPH % 42 % (24-48); MEAN CORPUSCULAR HEMOGLOBIN 30 pg (25-35); MEAN CORPUSCULAR HGB CONC 34 g/dL (31-37); MEAN CORPUSCULAR VOLUME 88 fL (79-100); METHADONE NEG (NEG); MONO # 0.6 x10^3/uL (0.0-1.1); MONO % 7 % (0-9); NEUT # 4.1 x10^3uL (1.8-7.7); NEUT % 50 % (31-73); OPIATES NEG (NEG); PHENCYCLIDINE NEG (NEG); PLATELET COUNT 271 x10^3/uL (140-400); RED BLOOD COUNT 4.44 x10^6/uL (3.50-5.40); RED CELL DISTRIBUTION WIDTH 14.5 % (11.5-14.5); WHITE BLOOD COUNT 8.3 x10^3/uL (4.0-11.0)
[2018-10-31 17:09] LABS: AMPHETAMINE/METHAMPHETAMINE NEG (NEG)
[2018-10-31 17:13] LABS: ALBUMIN 3.6 g/dL (3.4-5.0); ALBUMIN/GLOBULIN RATIO 0.8 (1.0-1.7); CALCIUM 8.8 mg/dL (8.5-10.1); CREATININE 0.9 mg/dL (0.6-1.0); GFR 66.3; POTASSIUM 3.9 mmol/L (3.5-5.1); TOTAL BILIRUBIN 0.3 mg/dL (0.2-1.0)
== END | disposition home or self-care (01) ==
LOC: LAB 16:32
PROVIDERS: ATTEND Psychiatry & Neurology Neurology
DX: R51 Headache (principal); I10 Essential (primary) hypertension; E11.9 Type 2 diabetes mellitus without complications; Z79.01 Long term (current) use of anticoagulants; Z79.899 Other long term (current) drug therapy
CPT/HCPCS: 36415; 80053; 80307; 84443; 85025; 85651

== ENCOUNTER → 2018-11-26 | Outpatient (CLI) | payer OTHER ==
[2018-01-11 20:20] VITALS: BP 118/86
--- NOTE | 2018-11-26 16:19 | RAD ---
HIP LEFT 1 VIEW WITH PELVIS History: Left hip pain, no recent injury Comparison: None. Findings: AP view of the pelvis and single lateral view of the left hip are submitted. No acute fracture or dislocation is identified. Hip joint spaces are maintained. There is mild degenerative change pubic symphysis. Impression: 1. No acute osseous abnormality is identified. Electronically signed by: Jostin Goodrich MD (11/26/2018 4:17 PM) [facility]
== END | disposition home or self-care (01) ==
LOC: LAB 09:40
PROVIDERS: ATTEND Nurse Practitioner Gerontology
DX: M25.552 Pain in left hip (principal)
CPT/HCPCS: 36415; 73501; 86431

== ENCOUNTER → 2018-11-26 | Outpatient (CLI) | payer OTHER ==
[2018-01-11 20:20] VITALS: BP 118/86
--- NOTE | 2018-11-26 13:46 | RAD ---
MRI Brain without contrast History: Dizziness, headaches, right arm weakness Technique: Multiplanar, multisequential noncontrast MR imaging was performed of the brain. Comparison: August 01, 2016 Findings: There is some motion degradation, also artifact on the FLAIR sequence in the frontal regions and basal ganglia. There is no convincing evidence of recent infarct. There is no new convincing focal signal abnormality of the brain parenchyma. There is no new intra-axial mass effect, midline shift, extra axial fluid collection. There has been lens surgery bilaterally. Paranasal sinuses are overall aerated, frontal sinus is not pneumatized. Mastoid air cells are aerated. There is similar nonspecific mild heterogeneity of the marrow of the clivus. Impression: 1. There is no new convincing intracranial abnormality. Electronically signed by: Jostin Goodrich MD (11/26/2018 1:43 PM) [id number]
== END | disposition home or self-care (01) ==
LOC: MRI 13:31
PROVIDERS: ATTEND Psychiatry & Neurology Neurology
DX: R42 Dizziness and giddiness (principal); R29.898 Other symptoms and signs involving the musculoskeletal system; R51 Headache
CPT/HCPCS: 70551

== ENCOUNTER 2018-12-01 08:27 | Emergency (ER) | payer OTHER ==
[~2018-12-01] VITALS: Ht 165.1 cm; Wt 68.0 kg
[~2018-12-01 08:27] MED LIST changes: -CYCL10TA2 PO; -NAPR-683 PO
[2018-12-01] MEDS ORDERED: NITROGLYCERIN SUBLINGUAL 0.4 MG BOTTLE OF 25. SL PRN (09:00)
[2018-12-01] MEDS ORDERED: ASPIRIN CHEWABLE 81 MG TABLET. PO ONE (09:00)
[2018-12-01 09:03] LABS: BASO # 0.1 x10^3/uL (0.0-0.2); BASO % 1 % (0-3); EOS # 0.1 x10^3/uL (0.0-0.7); EOS % 1 % (0-3); HEMATOCRIT 40.1 % (36.0-47.0); HEMOGLOBIN 13.6 g/dL (12.0-15.5); LYMPH # 4.7 x10^3/uL (1.0-4.8); LYMPH % 40 % (24-48); MEAN CORPUSCULAR HEMOGLOBIN 30 pg (25-35); MEAN CORPUSCULAR HGB CONC 34 g/dL (31-37); MEAN CORPUSCULAR VOLUME 88 fL (79-100); MONO % 8 % (0-9); NEUT # 5.9 x10^3uL (1.8-7.7); NEUT % 50 % (31-73); PLATELET COUNT 298 x10^3/uL (140-400); RED BLOOD COUNT 4.54 x10^6/uL (3.50-5.40); RED CELL DISTRIBUTION WIDTH 14.5 % (11.5-14.5); WHITE BLOOD COUNT 11.8 x10^3/uL (4.0-11.0)
[2018-12-01 09:16] LABS: CALCIUM 8.4 mg/dL (8.5-10.1); CREATININE 0.8 mg/dL (0.6-1.0); GFR 75.9; POTASSIUM 3.6 mmol/L (3.5-5.1)
[2018-12-01 09:17] LABS: PROTHROMBIN TIME PATIENT 12.4 SEC (11.7-14.0)
--- NOTE | 2018-12-01 09:22 | RAD ---
EXAM: CHEST 1 VIEW History: Chest pain COMPARISON: 01/11/2018 TECHNIQUE: Single portable radiograph of the chest FINDINGS: The cardiac silhouette is unremarkable. The lungs are clear bilaterally. The costophrenic sulci are clear and well demarcated. IMPRESSION: No radiographic evidence of an acute cardiopulmonary process. Electronically signed by: Tae Metzger MD (12/01/2018 9:19 AM) [facility] [place]
[2018-12-01 09:23] LABS: ALBUMIN 3.3 g/dL (3.4-5.0); ALBUMIN/GLOBULIN RATIO 0.9 (1.0-1.7); TOTAL BILIRUBIN 0.3 mg/dL (0.2-1.0)
[2018-12-01] MEDS ORDERED: fentaNYL PF VIAL 100 MCG/2 ML VIAL IV ONE (09:30)
[2018-12-01] MEDS ORDERED: ONDANSETRON PF 4 MG/2 ML VIAL. IV ONE (09:30)
[2018-12-01] MEDS ORDERED: FAMOTIDINE 20 MG/2 ML VIAL IVP ONE (09:30)
--- NOTE | 2018-12-01 09:30 | PHYS DOC ---
Past Medical History Past Medical History: Anxiety, Depression, Hypertension, Other (history of ovarian clot) Past Surgical History: Hysterectomy Alcohol Use: None Drug Use: None Adult General Chief Complaint Chief Complaint: CHEST PAIN HPI HPI Patient is a 48 year old female who presents with complaining of chest pain. Patient complaining of nonexertional substernal sharp chest pain since yesterday as a constant pain with radiation to her neck and throat as a severe pain without shortness of breath, nausea, palpitation, dizziness, focal neuro deficit. Patient rated her pain 10 over 10 and denied taking any pain medication. Patient states she has history of acid reflux and took antacid without improvement of her pain. Patient also complaining of headache like her previous episodes of migraine headache. Review of Systems Review of Systems Constitutional: Denies fever or chills [] Eyes: Denies change in visual acuity, redness, or eye pain [] HENT: Denies nasal congestion or sore throat [] Respiratory: Denies cough or shortness of breath [] Cardiovascular: No additional information not addressed in HPI [] GI: Denies abdominal pain, nausea, vomiting, bloody stools or diarrhea [] : Denies dysuria or hematuria [] Musculoskeletal: Denies back pain or joint pain [] Integument: Denies rash or skin lesions [] Neurologic: Denies headache, focal weakness or sensory changes [] Endocrine: Denies polyuria or polydipsia [] All other systems were reviewed and found to be within normal limits, except as documented in this note. Current Medications Current Medications Current Medications Medications (Trade) Dose Ordered Sig/David Start Time Stop Time Status Last Admin Dose Admin Aspirin (Children'S Aspirin) 324 mg 1X ONCE 12/01/18 09:00 12/01/18 09:01 DC 12/01/18 09:02 324 MG Famotidine (Pepcid Vial) 20 mg 1X ONCE 12/01/18 09:30 12/01/18 09:31 DC 12/01/18 09:30 20 MG Fentanyl Citrate (Fentanyl 2ml Vial) 50 mcg 1X ONCE 12/01/18 09:30 12/01/18 09:31 DC 12/01/18 09:30 50 MCG Lorazepam (Ativan Inj) 1 mg 1X ONCE 12/01/18 10:15 12/01/18 10:16 DC Nitroglycerin (Nitrostat) 0.4 mg PRN Q5MIN PRN 12/01/18 09:00 12/02/18 08:59 12/01/18 09:02 0.4 MG Ondansetron HCl (Zofran) 4 mg 1X ONCE 12/01/18 09:30 12/01/18 09:31 DC 12/01/18 09:30 4 MG Allergies Allergies Allergies Coded Allergies Type Severity Reaction Last Updated Verified atorvastatin Adverse Reaction Intermediate Nausea and Vomiting 09/28/16 Yes codeine Adverse Reaction Intermediate Nausea/Vomiting 09/28/16 Yes Physical Exam Physical Exam Constitutional: Well developed, well nourished, moderate distress, non-toxic appearance, anxious. [] HENT: Normocephalic, atraumatic. Eyes: PERRLA, EOMI, conjunctiva normal, no discharge. [] Neck: Normal range of motion, no tenderness, supple, no stridor. [] Cardiovascular:Heart rate regular rhythm, no murmur [] Lungs & Thorax: Bilateral breath sounds clear to auscultatio, reproducible chest wall pain[] Abdomen: Bowel sounds normal, soft, no tenderness, no masses, no pulsatile masses. [] Skin: Warm, dry, no erythema, no rash. [] Back: No tenderness, no CVA tenderness. [] Extremities: No tenderness, no cyanosis, no clubbing, ROM intact, no edema. [] Neurologic: Alert and oriented X 3, normal motor function, normal sensory function, no focal deficits noted. [] Psychologic: Affect anxious, judgement normal, mood normal. [] Current Patient Data Vital Signs Vital Signs Date Time Temp Pulse Resp B/P (MAP) Pulse Ox O2 Delivery O2 Flow Rate FiO2 12/01/18 10:00 16 12/01/18 09:02 99 169/86 12/01/18 08:45 97.8 100 97.8 Lab Values Laboratory Tests Test 12/01/18 08:30 12/01/18 08:50 Troponin I Quantitative < 0.017 ng/mL (0.000-0.055) WA-Cuv-T-Type Natriuretic Peptide 18 pg/mL (0-124) White Blood Count 11.8 x10^3/uL (4.0-11.0) H Red Blood Count 4.54 x10^6/uL (3.50-5.40) Hemoglobin 13.6 g/dL (12.0-15.5) Hematocrit 40.1 % (36.0-47.0) Mean Corpuscular Volume 88 fL (79-100) Mean Corpuscular Hemoglobin 30 pg (25-35) Mean Corpuscular Hemoglobin Concent 34 g/dL (31-37) Red Cell Distribution Width 14.5 % (11.5-14.5) Platelet Count 298 x10^3/uL (140-400) Neutrophils (%) (Auto) 50 % (31-73) Lymphocytes (%) (Auto) 40 % (24-48) Monocytes (%) (Auto) 8 % (0-9) Eosinophils (%) (Auto) 1 % (0-3) Basophils (%) (Auto) 1 % (0-3) Neutrophils # (Auto) 5.9 x10^3uL (1.8-7.7) Lymphocytes # (Auto) 4.7 x10^3/uL (1.0-4.8) Monocytes # (Auto) 1.0 x10^3/uL (0.0-1.1) Eosinophils # (Auto) 0.1 x10^3/uL (0.0-0.7) Basophils # (Auto) 0.1 x10^3/uL (0.0-0.2) Prothrombin Time 12.4 SEC (11.7-14.0) Prothrombin Time INR 1.0 (0.8-1.1) D-Dimer (Linda) 0.28 ug/mlFEU (0.00-0.50) Sodium Level 140 mmol/L (136-145) Potassium Level 3.6 mmol/L (3.5-5.1) Chloride Level 103 mmol/L (98-107) Carbon Dioxide Level 27 mmol/L (21-32) Anion Gap 10 (6-14) Blood Urea Nitrogen 11 mg/dL (7-20) Creatinine 0.8 mg/dL (0.6-1.0) Estimated GFR (Cockcroft-Gault) 75.9 BUN/Creatinine Ratio 14 (6-20) Glucose Level 100 mg/dL (70-99) H Calcium Level 8.4 mg/dL (8.5-10.1) L Total Bilirubin 0.3 mg/dL (0.2-1.0) Aspartate Amino Transferase (AST) 36 U/L (15-37) Alanine Aminotransferase (ALT) 33 U/L (14-59) Alkaline Phosphatase 90 U/L (46-116) Creatine Kinase 28 U/L (26-192) Total Protein 7.0 g/dL (6.4-8.2) Albumin 3.3 g/dL (3.4-5.0) L Albumin/Globulin Ratio 0.9 (1.0-1.7) L Lipase 116 U/L (73-393) Laboratory Tests 12/01/18 08:50 Laboratory Tests 12/01/18 08:50 EKG EKG EKG interpreted by me. EKG at 0836 showed normal sinus rhythm at rate of 94, normal VT and QT intervals, no acute ST and T-wave abnormalities. Radiology/Procedures Radiology/Procedures [facility] [address] [address] IMAGING REPORT Signed PATIENT: GRISELDA LOZA ACCOUNT: [id number] : 1970 LOCATION: ER AGE: 48 SEX: F EXAM STATUS: REG ER ORD. PHYSICIAN: NHAN LAWS MD REASON: chest pain PROCEDURE: PORTABLE CHEST 1V EXAM: CHEST 1 VIEW History: Chest pain COMPARISON: 01/11/2018 TECHNIQUE: Single portable radiograph of the chest FINDINGS: The cardiac silhouette is unremarkable. The lungs are clear bilaterally. The costophrenic sulci are clear and well demarcated. IMPRESSION: No radiographic evidence of an acute cardiopulmonary process. Electronically signed by: Tae Metzger MD (12/01/2018 9:19 AM) [facility] DICTATED and SIGNED BY: TAE METZGER MD DATE: 12/01/18918 Course & Med Decision Making Course & Med Decision Making Pertinent Labs and Imaging studies reviewed. (See chart for details) Evaluation of patient in ER showed 48-year-old male patient with complaining of substernal pain since yesterday with radiation to her throat. Patient was very anxious in ER and had unremarkable labs and EKG and chest x-ray. D-dimer was negative. Patient treated with nitroglycerin and did not want to have any more than one piece without change of her pain. Patient treated with fentanyl and Toradol and felt better. Patient refused to take Ativan. Plan discharge patient home with diagnose of pus was contacted chest pain and anxiety. Rose Disclaimer Rose Disclaimer This electronic medical record was generated, in whole or in part, using a voice recognition dictation system. Departure Departure Impression: Primary Impression: Musculoskeletal chest pain Additional Impressions: Anxiety Headache Disposition: HOME, SELF-CARE (at 1023) Condition: IMPROVED Referrals: JULIA MURILLO MD (PCP) Patient Instructions: Anxiety and Panic Attacks, Chest Wall Pain, General Heada mihir Without Cause Additional Instructions: Drink plenty of liquids Follow-up with your primary care physician in 3-5 days Return to ER if not getting better Continue home medication Scripts Naproxen (NAPROSYN) 500 Mg Tablet 1 TAB PO BID for pain, #20 TAB Prov: NHAN LAWS MD 12/01/18 Cyclobenzaprine Hcl (CYCLOBENZAPRINE HCL) 10 Mg Tablet 1 TAB PO TID, #21 TAB Prov: NHAN LAWS MD 12/01/18 Problem Qualifiers Additional Impressions: Headache Headache type: unspecified Headache chronicity pattern: unspecified pattern Intractability: not intractable Qualified Codes: R51 - Headache NHAN LAWS MD December 01, 2018 09:30
[2018-12-01] MEDS ORDERED: NAPR-683 PO (10:26)
[2018-12-01] MEDS ORDERED: CYCL10TA2 PO (10:26)
[2018-12-01 10:48] VITALS: BP 115/88
--- NOTE | 2018-12-01 11:04 | EKG ---
[facility] [address] [place] [address] Test Date: 2018-12-01 Test Time: 08:36:52 Pat Name: GRISELDA LOZA Department: Room: Gender: F [employer]: : 1970 Requested By: NHAN LAWS Order Number: [id number] Reading MD: Blair Wang Measurements Intervals [place] Rate: 94 P: 41 DE: 158 QRS: 2 QRSD: 72 T: 31 QT: 362 QTc: 453 Interpretive Statements SINUS RHYTHM NORMAL ECG Electronically Signed On 12-20-2018 12:47:04 CDT by Blair Wang
== END 2018-12-01 10:55 | disposition home or self-care (01) ==
LOC: ER 08:27
DX: R07.2 Precordial pain (principal); R51 Headache; F41.9 Anxiety disorder, unspecified; M54.2 Cervicalgia; R07.0 Pain in throat; F32.9 Major depressive disorder, single episode, unspecified; I10 Essential (primary) hypertension; G43.909 Migraine, unspecified, not intractable, without status migrainosus; Z88.5 Allergy status to narcotic agent; Z88.8 Allergy status to other drugs, medicaments and biological substances
CPT/HCPCS: 36415; 71045; 80053; 82550; 83690; 83880; 84484; 85025; 85379; 85610; 93005; 96374; 96375; 99285; J2405; J3010; J3490

== ENCOUNTER → 2018-12-17 | Outpatient (CLI) | payer OTHER ==
[2018-12-01 10:48] VITALS: BP 115/88
[~2018-12-17] MED LIST changes: +CYCL10TA2 PO; +NAPR-683 PO
--- NOTE | 2018-12-18 09:44 | RAD ---
MRI of the cervical spine without contrast 12/17/2018 CLINICAL HISTORY: Neck pain. Dizziness. TECHNIQUE: Unenhanced T1-weighted, T2-weighted and inversion recovery sagittal and gradient echo and T2-weighted axial images of the cervical spine were obtained. FINDINGS: Comparison study is dated 09/28/2017. There is mild straightening of the normal cervical lordosis. Degenerative signal changes are seen involving all of the disks of the cervical spine. Degenerative signal changes are seen within the marrow surrounding the C5-6 and C6-7 discs predominantly. Loss of height of the C6-7 disc is seen. A 1 cm hemangioma is seen involving the T2 vertebral body. No area of abnormal signal intensity is seen involving the cervical spinal cord. At the C2-3 and C3-4 disc spaces there are minimal generalized disc bulges. Degenerative changes are seen involving the uncovertebral and facet joints bilaterally. These findings do not result in significant central spinal canal or neural foraminal stenosis. At the C4-5 disc space is a mild generalized disc bulge. Superimposed on this disc bulge is a right paracentral focal disc protrusion. This measures 3 mm in AP diameter. Mild degenerative changes are seen involving the uncovertebral and facet joints bilaterally. These findings result in mild right-sided central spinal canal stenosis without evidence of cord impingement. No neural foraminal stenosis is seen. At the C5-6 disc space there is a mild to moderate generalized disc bulge. This is eccentric to the right. Degenerative changes are seen involving the uncovertebral and facet joints bilaterally. These findings result in mild to moderate right greater than left central spinal canal stenosis with mild right greater than left cord impingement. Mild bilateral neural foraminal stenosis is seen. At the C6-7 disc space there is a moderate generalized disc bulge. Degenerative changes are seen involving the uncovertebral and facet joints bilaterally. These findings efface the anterior and posterior CSF resulting in moderate central spinal canal stenosis with moderate cord impingement. Mild bilateral neural foraminal stenosis is seen. At the C7-T1 disc space there is a minimal generalized disc bulge. Degenerative changes are seen involving the facet joints bilaterally. There is a superimposed focal central disc protrusion which measures 2 mm in AP diameter. These findings do not result in significant central spinal canal or neural foraminal stenosis. Since the previous examination there has been no significant interval change. IMPRESSION: Degenerative changes are seen throughout the cervical spine. These findings result in mild right-sided central spinal canal stenosis without evidence of cord impingement at C4-5, mild to moderate right greater than left central spinal canal stenosis with mild right greater than left cord impingement at C5-6 and moderate central spinal canal stenosis with moderate cord impingement at C6-7. Multilevel neural foraminal stenosis is seen as discussed above. Electronically signed by: Kishore Kwok MD (12/18/2018 9:41 AM) [email or web address]
== END | disposition home or self-care (01) ==
LOC: MRI 16:29
PROVIDERS: ATTEND Psychiatry & Neurology Neurology
DX: M47.812 Spondylosis without myelopathy or radiculopathy, cervical region (principal); M48.02 Spinal stenosis, cervical region; M50.23 Other cervical disc displacement, cervicothoracic region; R42 Dizziness and giddiness
CPT/HCPCS: 72141

== ENCOUNTER → 2018-12-18 | Outpatient (CLI) | payer OTHER ==
[2018-12-01 10:48] VITALS: BP 115/88
--- NOTE | 2018-12-18 16:56 | RAD ---
EXAM: Bilateral lower extremity venous Doppler with venous mapping and reflux assessment. HISTORY: Bilateral lower extremity pain/swelling. COMPARISON: None. FINDINGS: Grayscale and Doppler analysis of the both lower extremity deep venous systems was performed with graded compression and augmentation. The common femoral, greater saphenous, superficial femoral, popliteal and calf veins were assessed. There is no evidence of deep venous thrombosis. The right greater saphenous vein measures 5 mm at the common femoral junction. There is no evidence of reflux. The left greater saphenous vein measures 4 mm at the common femoral junction. There is no evidence of reflux. The right lesser saphenous vein measures 2 mm proximally. The left measures 2 mm proximally. There is no lesser saphenous reflux bilaterally. IMPRESSION: 1. No evidence of deep venous thrombosis. Vein mapping as above. Electronically signed by: Kan Lechuga MD (12/18/2018 4:54 PM) [facility]
--- NOTE | 2018-12-18 16:57 | RAD ---
EXAM: Carotid Doppler sonogram. HISTORY: Arteriosclerotic disease. Preoperative risk factors, vertigo. TECHNIQUE: Torres scale and color Doppler sonographic evaluation of the neck with spectral waveform analysis was performed and static images are submitted for review. FINDINGS: RIGHT: The peak systolic velocity within the common carotid artery is 81 cm/sec. The peak systolic velocity within the internal carotid artery is 91 cm/sec and the end diastolic velocity within the internal carotid artery is 36 cm/sec. The ICA/CCA ratio is 0.89. Grayscale images demonstrate no grayscale stenosis. LEFT: The peak systolic velocity within the common carotid artery is 114 cm/sec. The peak systolic velocity within the internal carotid artery is 79 cm/sec and the end diastolic velocity within the internal carotid artery is 29 cm/sec. The ICA/CCA ratio is 0.62. Grayscale images demonstrate no grayscale stenosis. There is antegrade flow within both vertebral arteries. IMPRESSION: 1. No evidence of hemodynamically significant stenosis. PQRS Compliance Statement - Stenosis calculations for CT, MR and conventional angiography are based upon measurement of the distal ICA diameter in accordance with the NASCET methodology. Stenosis calculations for carotid ultrasound studies are derived from validated velocity criteria which are known to correlate with the NASCET methodology. Electronically signed by: Kan Lechuga MD (12/18/2018 4:55 PM) [facility]
== END | disposition home or self-care (01) ==
LOC: US 15:00
PROVIDERS: ATTEND Family Medicine
DX: I82.409 Acute embolism and thrombosis of unspecified deep veins of unspecified lower extremity (principal)
CPT/HCPCS: 93880; 93970

== ENCOUNTER → 2019-01-07 | Outpatient (CLI) | payer OTHER ==
--- NOTE | 2019-01-08 08:24 | RAD ---
Left hip, 2 views, 01/07/2019: HISTORY: Left hip pain Comparison is made to a study from 11/26/2018. No fracture or dislocation is identified. There is minimal narrowing of the left hip joint with minimal marginal spurring. The periarticular soft tissues are unremarkable. There is also mild arthritic change at the symphysis pubis. IMPRESSION: 1. Mild degenerative change at the left hip joint. 2. No acute bony abnormality is detected. Electronically signed by: Jm Marc MD (01/08/2019 8:21 AM) [facility]
== END | disposition home or self-care (01) ==
LOC: RAD 15:00
PROVIDERS: ATTEND Neurological Surgery
DX: M16.12 Unilateral primary osteoarthritis, left hip (principal)
CPT/HCPCS: 73502

== ENCOUNTER 2019-02-11 10:01 | Emergency (ER) | payer OTHER ==
[~2019-02-11] VITALS: Ht 152.4 cm; Wt 67.1 kg
[~2019-02-11 10:01] MED LIST changes: -ESTR1TAB17 PO; -IOHEXOL 180 MG/ML 10 ML VIAL. ONE; -METH-37 PO; -NAPR500T8 PO; -methylPREDNISolone ACETATE 40 MG/ML VIAL. ONE; -methylPREDNISolone ACETATE 80 MG/ML VIAL. ONE
[2019-02-11 10:20] VITALS: BP 146/92
[2019-02-11] MEDS ORDERED: KETOROLAC 30 MG/ML VIAL. IV ONE (10:30)
[2019-02-11] MEDS ORDERED: fentaNYL PF VIAL 100 MCG/2 ML VIAL IV ONE ×2 (10:30→11:30)
[2019-02-11] MEDS ORDERED: ONDANSETRON PF 4 MG/2 ML VIAL. IV ONE (11:00)
--- NOTE | 2019-02-11 12:29 | PHYS DOC ---
Past Medical History Past Medical History: Anxiety, Depression, Hypertension, Other Additional Past Medical Histor: hx of a blood clot Past Surgical History: Hysterectomy Additional Past Surgical Histo: CATARACTS Alcohol Use: None Drug Use: None Adult General Chief Complaint Chief Complaint: UPPER EXTREMITY PAIN HPI HPI 48-year-old female with a history of a cervical radiculopathy presents from Dr. Sandy' pain clinic after a spinal injection today. After the injection patient developed some pain in her right hand that was a little worse than usual. History I have from Dr. 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 She denies any weakness to the extremity just pain. She denies any other symptoms at this time. The pain is 10 out of 10 and any movement makes it much worse.[] Review of Systems Review of Systems Constitutional: Denies fever or chills [] Eyes: Denies change in visual acuity, redness, or eye pain [] HENT: Denies nasal congestion or sore throat [] Respiratory: Denies cough or shortness of breath [] Cardiovascular: No additional information not addressed in HPI [] GI: Denies abdominal pain, nausea, vomiting, bloody stools or diarrhea [] : Denies dysuria or hematuria [] Musculoskeletal: Denies back pain or joint pain [] Integument: Denies rash or skin lesions [] Neurologic: Pain in right arm secondary to an inflamed cervical nerve root[] Endocrine: Denies polyuria or polydipsia [] All other systems were reviewed and found to be within normal limits, except as documented in this note. Current Medications Current Medications Current Medications Medications (Trade) Dose Ordered Sig/[facility] Start Time Stop Time Status Last Admin Dose Admin Fentanyl Citrate (Fentanyl 2ml Vial) 50 mcg 1X ONCE 02/11/19 11:30 02/11/19 11:32 DC 02/11/19 11:41 50 MCG Ketorolac Tromethamine (Toradol 30mg Vial) 30 mg 1X ONCE 02/11/19 10:30 02/11/19 10:31 DC 02/11/19 10:46 30 MG Ondansetron HCl (Zofran) 4 mg 1X ONCE 02/11/19 11:00 02/11/19 11:01 DC 7/30/19 11:22 4 MG Allergies Allergies Allergies Coded Allergies Type Severity Reaction Last Updated Verified atorvastatin Adverse Reaction Intermediate Nausea and Vomiting 09/28/16 Yes codeine Adverse Reaction Intermediate Nausea/Vomiting 09/28/16 Yes Physical Exam Physical Exam Constitutional: Well developed, well nourished, moderate distress, non-toxic appearance. [] HENT: Normocephalic, atraumatic, bilateral external ears normal, oropharynx moist, no oral exudates, nose normal. [] Eyes: PERRLA, EOMI, conjunctiva normal, no discharge. [] Neck: Normal range of motion, no tenderness, supple, no stridor. [] Cardiovascular:Heart rate regular rhythm, no murmur [] Lungs & Thorax: Bilateral breath sounds clear to auscultation [] Abdomen: Bowel sounds normal, soft, no tenderness, no masses, no pulsatile masses. [] Skin: Warm, dry, no erythema, no rash. [] Back: No tenderness, no CVA tenderness. [] Extremities: No tenderness, no cyanosis, no clubbing, ROM intact, no edema. [] Neurologic: Alert and oriented X 3, normal motor function, normal sensory function, no focal deficits noted. [] Psychologic: Anxious Current Patient Data Vital Signs Vital Signs Date Time Temp Pulse Resp B/P (MAP) Pulse Ox O2 Delivery O2 Flow Rate FiO2 02/11/19 11:41 16 99 Room Air 02/11/19 10:20 97.8 98 146/92 (110) 97.8 EKG EKG [] Radiology/Procedures Radiology/Procedures [] Course & Med Decision Making Course & Med Decision Making Pertinent Labs and Imaging studies reviewed. (See chart for details) [ED course: Evaluation reveals a 48-year-old female in moderate distress secondary to right arm pain. She was given a total of 100 �g of fentanyl and 30 of Toradol during her stay in the department. This did help her symptoms. I've instructed her to get her prescriptions from the pharmacy but to return if the pain is uncontrollable.] Dragon Disclaimer Dragon Disclaimer This electronic medical record was generated, in whole or in part, using a voice recognition dictation system. Departure Departure Impression: Primary Impression: Cervical radiculopathy Disposition: HOME, SELF-CARE Condition: IMPROVED Referrals: JULIA MURILLO MD (PCP) Patient Instructions: Cervical Radiculopathy Additional Instructions: Return to the emergency department with any new or concerning symptoms MATTHEW ENCINAS DO Feb 11, 2019 12:29
--- NOTE | 2019-02-13 17:05 | PDOC2 ---
NEUROLOGY CONSULT Date of Admission Date of Admission DATE: 02/13/19 TIME: 16:07 Reason for Consult Reason for Consult: IMPRESSION: Cruciate pain in right UE x 2 days. Chronic should pain. Chronic neck pain with restriction of ROM. C5-6, C6-7 never roots impingement. Cervical radiculopathy. Shingles? HTN. HLD. Depression. Anxiety. RECOMMENDATIONS/PLAN: Neurontin 100 mg tid with titration up. Pain control. Hydrocodone 7.5 mg/325 mg PRN pain q3h. C-spine MRI w/o contrast. Please consult ID to help evaluate possible shingles. Lab: see orders. Discussed with her daughters in all detail in Neurology Clinic on 02/13/19. HISTORY OF THE PRESENT ILLNESS: This is a 48-year-old female patient who presented to the [facility] today due to severe pain in right UE for 2 days. In the previous clinic visit, she stated that she had been having chronic dizziness for about 2 years, but her symptom become worse recently. She was unable to turn her head to the right side that caused her significant dizziness. Her symptoms of dizziness persistent day and night, in upright, sitting and lying position. She also felt room and self spinning. She stated she had headaches and nausea and right UE weakness. Her headache were described as a dull pain and sharp pain sometimes. she rated her headaches 10/10 some times. She takes OTCs mostly Ibuprofen which helped a little. After evaluation in the Neurology Clinic, she was found to have C5-6 and C6-7 nerve roots impingement and she was referred to Dr. Fitzgerald, the Neurosurgeon, who referred her to Pain Clinic. She received cervical epidural injection in Pain Clinic on 02/11/19 but immediate developed severe pain in her neck, shoulder and right UE. Toradol was given but was stopped due to her GI side effects, so she has been taking hydrocodone since, but stated it only helped her pain for 2 hours each dose. She described that her pain as if on fire and she rated her pain 10/10 that is extremely sensitive to touch, even light touch by a cotton string can induce her cruciate pain. She stated pain is in her neck, right shoulder, and entire right UE involving posterior, anterior, lateral and all aspects. Her C-Spine MRI w/o contrast on 12/17/18 reported mild impingement at C5-6, and moderate impingements at C6-7. Her brain MRI w/o contrast on 11/26/18 was negative. No evidence of CVA. PAST MEDICAL HISTORY: Chronic neck, shoulder and UE pain. HTN. HLD. Migraine headache. Fibromyalgia. Depression. Anxiety. PAST SURGERY HISTORY: Tonsillectomy Tubal ligation. . Breast augmentation. Cataract surgery. ALLERGY: Codeine, N/V. Lipitor. Toradol, N/V. Fish oil, GI symptoms. MEDICATIONS: Refer to [facility] FAMILY HISTORY: Her mother has heart disease, HTN, HLD. Her father has DM, HTN. Her brother has seizure. SOCIAL HISTORY: Lives with her and children at home. Denies smoking, drinking, and illicit drug use. REVIEW OF SYSTEMS: Constitutional: Over weight.. Head: No traumatic brain or head injury. Skin: No edema, or rash. Ear: No infection. Eyes: No vision loss or color blindness. Nose: No bleeding or purulent discharges. Hearing: No hearing decrease. Neck: No injury. Breast: S/p augmentation. Cardiac: HTN, HLD. Pulmonary: No COPD. GI: Nausea, voting. Urinary/genital: UTI. Endocrinologic: No cousin face, craniofacial dysmorphism, polydactyly. Skeletomuscular: No muscular atrophy, deformity. Neurological: see HP. Psychiatric: Denies drug use/abuse. Otherwise, not [id number] review of systems. PHYSICAL EXAMINATION: General appearance is in subacute distress. HEENT: Normocephalic and nontraumatic. Eyes, nose, ears, and throat are unremarkable. Neck is supple. No lymphadenopathy. No bruits are heard over the carotid artery. No crepitus. Cardiovascular: S1, S2, regular rate and rhythm. Pulmonary: Clear to auscultation bilaterally. Abdomen: Bowel sounds are positive. Abdomen is soft, nontender, and nondistended. Extremities: No rash, lesions, or edema. No restriction of range of motion NEUROLOGICAL EXAMINATION: Alert Oriented to time, place and person. PERRL. EOMI. CN: no focal findings. Muscle tone: within normal. Muscle strength: 5- DTR: 1-2 Plantar reflex: Flexor response bilaterally Gait: At baseline normal. Sensory exam: Extremely sensitive to light touch even a cotton string can induce severe pain in her right UE in all aspects but more in the dorsal and lateral aspects. No cerebellar signs elicited. F-T-N test accurate in left hand, but not willing to perform the test due to pain. Current Medications Current Medications Current Medications Fentanyl Citrate (Fentanyl 2ml Vial) 50 mcg 1X ONCE IV Last administered on 02/11/19at 10:46; Start 02/11/19 at 10:30; Stop 02/11/19 at 10:31; Status DC Ketorolac Tromethamine (Toradol 30mg Vial) 30 mg 1X ONCE IV Last administered on 02/11/19at 10:46; Start 02/11/19 at 10:30; Stop 02/11/19 at 10:31; Status DC Ondansetron HCl (Zofran) 4 mg 1X ONCE IV Last administered on 02/11/19at 11:22; Start 02/11/19 at 11:00; Stop 02/11/19 at 11:01; Status DC Fentanyl Citrate (Fentanyl 2ml Vial) 50 mcg 1X ONCE IV Last administered on 02/11/19at 11:41; Start 02/11/19 at 11:30; Stop 02/11/19 at 11:32; Status DC Active Scripts Active Naprosyn (Naproxen) 500 Mg Tablet 1 Tab PO BID Cyclobenzaprine Hcl 10 Mg Tablet 1 Tab PO TID Zofran (Ondansetron Hcl) 4 Mg Tablet 4 Mg PO PRN TID PRN nausea/vomiting Oxycodone-Acetaminophen 5-325 (Oxycodone Hcl/Acetaminophen) 1 Each Tablet 2 Tab PO PRN Q4HRS PRN Carafate (Sucralfate) 1 Gm Tablet 1 Tab PO QID PRN Reported Meclizine Hcl 12.5 Mg Tablet 1 Tab PO BID Omeprazole 20 Mg Tablet.dr 20 Mg PO BID Aleve (Naproxen Sodium) 220 Mg Tablet 220 Mg PO BID Flonase Allergy Relief (Fluticasone Propionate) 9.9 Ml [place].susp 2 Sprays NS DAILY Trintellix (Vortioxetine) 20 Mg Tablet 20 Mg PO DAILY Toprol Xl (Metoprolol Succinate) 25 Mg Tab.er.24h 25 Mg PO DAILY Amitriptyline Hcl 25 Mg Tablet 25 Mg PO HS Xanax (Alprazolam) 0.5 Mg Tablet 0.5 Mg PO PRN Q6HRS PRN Allergies Allergies: Allergies Coded Allergies Type Severity Reaction Last Updated Verified atorvastatin Adverse Reaction Intermediate Nausea and Vomiting 09/28/16 Yes codeine Adverse Reaction Intermediate Nausea/Vomiting 09/28/16 Yes ROS Review of System The patient denies any associated fevers, chills, headache, ear pain, rhinorrhea, sore throat, stiff neck, productive cough, chest pain, shortness of breath, back or flank pain, abdominal pain, nausea, vomiting, diarrhea, constipation, dysuria, rash, numbness, weakness, tingling, incontinence, difficulty ambulating, or diaphoresis. Physical Exam Physical Exam General: Well developed, well nourished, no acute distress, well appearing HEENT: Pupils equally round and reactive to light, EOMI, no discharge, normal conjunctiva Neck: Supple, no nuchal rigidity, no JVD, trachea midline, no tenderness Cardiac: RRR, no murmurs, no gallops, no rubs Chest/Lungs: CTAB, no wheeze, no rhonchi, no crackles Abdomen: soft, non-distended, no guarding, no peritoneal signs, non-tender Back: No tenderness Extremities: no edema, pulses intact, non-tender,capillary refill <3 sec monika ateral upper and lower extremities, Neuro: Alert and oriented x 4, no focal deficits, normal speech REJI PETIT MD Feb 13, 2019 17:05
[2019-02-13] MEDS ORDERED: HYDROcodone/APAP 7.5/325MG 1 TAB TABLET PO PRN (17:15)
[2019-02-13] MEDS ORDERED: NAPR500T8 PO (19:55)
[2019-02-13] MEDS ORDERED: MECL12.52 PO (20:02)
[2019-02-13] MEDS ORDERED: CYCL10TA2 PO (20:02)
[2019-02-13] MEDS ORDERED: METH-37 PO (20:02)
[2019-02-13] MEDS ORDERED: GABAPENTIN 100 MG CAPSULE. PO SCH (21:00)
[2019-02-14] MEDS ORDERED: ESTR1TAB17 PO (00:26)
== END 2019-02-11 12:52 | disposition home or self-care (01) ==
LOC: ER 10:01
DX: M54.12 Radiculopathy, cervical region (principal); F41.9 Anxiety disorder, unspecified; F32.9 Major depressive disorder, single episode, unspecified; I10 Essential (primary) hypertension; Z90.710 Acquired absence of both cervix and uterus; Z88.5 Allergy status to narcotic agent; Z88.8 Allergy status to other drugs, medicaments and biological substances
CPT/HCPCS: 96374; 96375; 96376; 99284; J1885; J2405; J3010

== ENCOUNTER → 2019-02-11 | Outpatient (CLI) | payer OTHER ==
[~2019-02-11] MED LIST changes: +ESTR1TAB17 PO; +IOHEXOL 180 MG/ML 10 ML VIAL. ONE; +MECL12.52 PO; +METH-37 PO; +NAPR500T8 PO; +OMEP20TA8 PO; +methylPREDNISolone ACETATE 40 MG/ML VIAL. ONE; +methylPREDNISolone ACETATE 80 MG/ML VIAL. ONE
--- NOTE | 2019-02-11 23:57 | CONS ---
DATE OF CONSULTATION: 02/11/2019 INITIAL CONSULTATION FOR PAIN CLINIC CHIEF COMPLAINT: Neck and right upper extremity pain. HISTORY OF PRESENT ILLNESS: This is a 48-year-old female, who presents with history of pain in the base of the neck and right shoulder and arm for about 2 years, gradually increasing, worse with activity, not a result of any specific injury or action that she is aware of, but has been worse with raising her right arm, using her right hand as she is right handed, with typing, using computer, any repetitive motions with the right arm. The patient reports it fatigues her easily and there has been tingling and numbness in the hand and fingers as well on the right side, mostly the middle finger and distal fingers on the right as well as some tingling on the left side. The patient reports she did have an injection in her shoulder, which was not helpful with her primary physician and says has some cramps in her hands as well. The patient reports it awakens her from sleep at night. Does not affect her bowel or bladder control or ability to walk. She has not had any other treatment at the time except physical therapies and chiropractic treatments. She is doing some stretching exercises on her own, which she feels is possibly helpful, but is not decreasing the pain significantly. The patient reports it awakens her from sleep at night at least 2-3 times. The patient rates her disability rating from 0 to 10, 10 being the worst, is a 7 with family home responsibilities, recreation, occupation, 3 with social activity, 5 with sexual behavior, and 0 with self-care and life support activities. The patient did have an MRI scan of the cervical spine showing degenerative changes throughout the cervical spine, mild right-sided central spinal canal stenosis without evidence of cord impingement at C4-C5, [id number] right greater than left central spinal canal stenosis, mild right greater than left cord impingement at C5-C6, and moderate central spinal canal stenosis with moderate cord impingement at C6-C7. PAST MEDICAL HISTORY: Significant for hypertension, gastroesophageal reflux, dizziness, arthritis, and fibromyalgia. PREVIOUS SURGERY: Include cataract extractions, laparoscopic cholecystectomy, partial hysterectomy, and in the past. CURRENT MEDICATIONS: Include oxycodone, Zofran, Naprosyn, meclizine, omeprazole, Xanax, fluticasone, Dexilant, Trintellix, Toprol, Carafate, amitriptyline, and naproxen. ALLERGIES: THE PATIENT IS ALLERGIC TO CODEINE. FAMILY HISTORY: Significant for hypertension, diabetes, hypercholesterolemia, and heart disease. SOCIAL HISTORY: The patient does not drink alcohol. Does not use any illegal, illicit, or recreational drugs. Does not smoke. Is ; lives with her spouse and has 5 children living at home. Lives locally in [place], [place]. 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 REVIEW OF SYSTEMS: The patient's review of systems is positive for those items as mentioned in history of present illness. All systems reviewed and otherwise negative. It is complete, full, and well documented on the patient's chart. PHYSICAL EXAMINATION: VITAL SIGNS: The patient's blood pressure is 140/91, pulse 79, respirations 18, temperature 96.7 degrees Fahrenheit, height is 5 feet, weight is 148 pounds. GENERAL: The patient is awake, alert, oriented, and appropriate. She has very pleasant demeanor. HEENT: Head shows normocephalic, atraumatic. Extraocular movements are intact, symmetrical. Oral cavity: Mucous membranes moist and pink. Dentition is intact. NECK: Shows anterior throat supple without palpable lymphadenopathy noted. Swallow reflex is symmetrical. CHEST: Shows normal on inspection. Breath sounds are clear to auscultation bilaterally. HEART: Shows S1, S2 clear. No murmurs auscultated. ABDOMEN: Soft, nontender, and nondistended. No palpable organomegaly is noted. No rebound or guarding demonstrated. BACK: Shows spine grossly in the midline. Normal-appearing cervical lordotic curvature and thoracic kyphotic curvature as well as lumbar lordotic curvature. Cervical paraspinous muscle shows symmetrical on inspection. On palpation, she has moderate tenderness diffusely, but only diffusely in the middle and inferior aspect of the cervical paraspinous muscles, also into more at the right superior medial trapezius without radiation, without trigger points. The patient has good rotational motion of cervical spine, both laterally greater than 45 degrees closer to 90 degrees as well as full extension and full forward flexion without significant pain reported. EXTREMITIES: Upper extremities show deep tendon reflexes at 2+ in the biceps and triceps tendons. Motor exam is approximately 4 on a scale of 5 with right stitcher feeder strength, biceps and triceps flexion and 5/5 on the left. Peripheral pulses are 2+ radial distribution. No peripheral edema is noted bilaterally. Shoulder shrug is strong and intact with some moderate tenderness on the left in the shoulder, but without loss of strength on resistance. This is true with abduction of shoulder to 90 degrees without loss of strength on resistance, but with significant pain is reported in the base of the left shoulder radiating into the posterior aspect of the upper arm. SKIN: Shows warm and dry, good turgor. No edema. No sores, rashes, or bruising. IMPRESSION: 1. This is a 48-year-old female with a 2-year history of increasing pain at base of the neck and right upper extremity in a radicular fashion. 2. MRI scan of cervical spine as noted. 3. Arthritis. 4. Hypertension. 5. Gastroesophageal reflux. PLAN: Options were discussed with the patient, including conservative medical management, physical therapy, interventional techniques and she would like to pursue interventional techniques as she is doing some stretching and strengthening exercises on her own. We discussed a cervical epidural steroid injection using description as well as anatomical models to describe the procedure. Risks were then discussed including but not limited to bleeding, infection, possibility of epidural hematoma, subsequent neurological compromise, dural puncture, headaches, spinal cord and/or nerve damage, side effects of steroid medication, and poor results regarding pain control. The patient understands and wished to proceed. The patient will return to clinic in approximately 2 weeks for followup. She was counseled on return appointment and activity level and side effects to be aware of. DIAGNOSES: Cervical radiculopathy with cervical degenerative disk disease and cervical spinal stenosis. PROCEDURE: Cervical epidural steroid injection, translaminar approach to C5-C6 level using C-arm fluoroscopic guidance under sterile prep and drape using local anesthetic. MEDICATION INJECTED: Total of 120 mg Depo-Medrol plus 5 mL of preservative-free normal saline and 2 mL of Isovue for contrast. CONDITION AT DISCHARGE: Stable. The patient did have significant pain in the right upper extremity following the injection. We allowed her to rest for approximately 1 hour with the pain subsiding in the shoulder and arm, but still significant in the hand, mainly in the middle finger with tingling and burning sensation. We had given her Tylenol p.o. without significant improvement. She was transferred to the Emergency Department for Toradol injection and this was completed and the patient was given prescription for Percocet as well as oral Toradol for the next 5 days with instructions and side effects to be aware of with the medication. The patient will follow up as scheduled. TARIQ THORNE MD DR: David JOB#: [id number] / [id number]
== END ==
LOC: PNCL 07:42
PROVIDERS: ATTEND Anesthesiology
DX: M50.122 Cervical disc disorder at C5-C6 level with radiculopathy (principal); I10 Essential (primary) hypertension; K21.9 Gastro-esophageal reflux disease without esophagitis; Z98.42 Cataract extraction status, left eye; Z98.41 Cataract extraction status, right eye; Z96.1 Presence of intraocular lens; Z90.49 Acquired absence of other specified parts of digestive tract; Z90.710 Acquired absence of both cervix and uterus; Z88.5 Allergy status to narcotic agent
CPT/HCPCS: 62321; J1030; J1040; Q9965

== ENCOUNTER → 2019-03-18 | Outpatient (CLI) | payer OTHER ==
[2019-02-15 10:59] VITALS: BP 125/79
[~2019-03-18] MED LIST changes: +DOCU-109 PO; +ERGO500027 PO; +ESCITALOPRAM OX10 MG PO; +ESTR1TAB17 PO; +GABA-689 PO; +METH-37 PO; +METH750T2 PO; +NAPR500T8 PO; +OXYC1TAB22 PO
[2019-03-18 14:47] LABS: BASO % 1 % (0-3); EOS % 0 % (0-3); HEMATOCRIT 41.2 % (36.0-47.0); HEMOGLOBIN 14.2 g/dL (12.0-15.5); LYMPH # 1.9 x10^3/uL (1.0-4.8); LYMPH % 23 % (24-48); MEAN CORPUSCULAR HEMOGLOBIN 31 pg (25-35); MEAN CORPUSCULAR HGB CONC 34 g/dL (31-37); MEAN CORPUSCULAR VOLUME 89 fL (79-100); MONO # 0.5 x10^3/uL (0.0-1.1); MONO % 7 % (0-9); NEUT # 5.7 x10^3/uL (1.8-7.7); NEUT % 70 % (31-73); PLATELET COUNT 307 x10^3/uL (140-400); RED BLOOD COUNT 4.61 x10^6/uL (3.50-5.40); RED CELL DISTRIBUTION WIDTH 14.6 % (11.5-14.5); WHITE BLOOD COUNT 8.2 x10^3/uL (4.0-11.0)
[2019-03-18 15:11] LABS: CALCIUM 9.2 mg/dL (8.5-10.1); CREATININE 0.9 mg/dL (0.6-1.0); GFR 66.3; POTASSIUM 3.4 mmol/L (3.5-5.1)
== END | disposition home or self-care (01) ==
LOC: SURGPAT 13:13
PROVIDERS: ATTEND Neurological Surgery
DX: Z01.818 Encounter for other preprocedural examination (principal); M47.812 Spondylosis without myelopathy or radiculopathy, cervical region; M54.12 Radiculopathy, cervical region; Z88.2 Allergy status to sulfonamides; Z79.899 Other long term (current) drug therapy
CPT/HCPCS: 36415; 80048; 82306; 85025; 87641

== ENCOUNTER → 2019-04-10 | Outpatient (CLI) | payer OTHER ==
[2019-03-26 15:00] VITALS: BP 110/73
--- NOTE | 2019-04-10 12:09 | RAD ---
EXAM: Cervical spine, 2 views. HISTORY: Pain status post fusion. COMPARISON: 03/25/2019. FINDINGS: 2 views of cervical spine are obtained. There is instrumented intraspinal fusion and interbody fusion at C5-C7. There is straightening of cervical lordosis. There is no listhesis. The vertebral bodies are normal in height. There is minimal anterior endplate remodeling at C4-C5. IMPRESSION: Instrumented anterior spinal fusion and interbody fusion at C5-C7. No acute osseous finding. Electronically signed by: Caitlin Barnes MD (04/10/2019 12:06 PM) [place] [id number]
== END | disposition home or self-care (01) ==
LOC: RAD 10:36
PROVIDERS: ATTEND Neurological Surgery
DX: M43.22 Fusion of spine, cervical region (principal); M40.292 Other kyphosis, cervical region
CPT/HCPCS: 72040

== ENCOUNTER → 2021-10-19 | Outpatient (CLI) | payer MEDICARE ==
[2019-03-26 15:00] VITALS: BP 110/73
[~2021-10-19] MED LIST changes: +CYCL10TA19 PO; -CYCL10TA2 PO; -MECL12.52 PO; +MECL12.582 PO; +METH-562 PO; -METH750T2 PO; -OMEP20TA8 PO; +OMEP20TA91 PO
--- NOTE | 2021-10-19 13:35 | KCIC ---
US ABDOMEN COMPLETE History: Reason: LIVER CYST / Spl. Instructions: / History: Comparison: None. Technique: Sonographic examination of the abdomen was performed and multiple grayscale and color Dopp ler static images were obtained. Findings: Liver demonstrates normal echogenicity. The liver measures 15.5 cm. Portal flow is patent. Right hepa tic lobe cyst measures 10.1 x 8.1 x 9.3 cm with overall simple appearance and thin septation. Prior cholecystectomy. Common bile duct measures 6 mm in diameter. Visualized pancreas not well seen due to overlying structures. The right kidney measures 9.2 x 5.5 x 5.0 cm. No hydronephrosis. The left kidney measures 11.7 x 4.2 x 5.0 cm. No hydronephrosis. Left renal cyst measures 1.1 cm. The spleen measures 10 cm. Visualized portions of the abdominal aorta and IVC are normal. IMPRESSION: 1. No acute abdominal pathology. 2. Septated right hepatic lobe cyst. 3. Small left renal cyst. 4. Prior cholecystectomy. Electronically signed by: Mayank Pendleton DO (10/19/2021 1:32 PM) [id number]
== END ==
LOC: KCIC US 07:55
PROVIDERS: ATTEND Family Medicine
DX: K76.89 Other specified diseases of liver (principal); Z90.49 Acquired absence of other specified parts of digestive tract
CPT/HCPCS: 76700